=== PATIENT | female | born 1945 | race Caucasian/White ===

== ENCOUNTER → 2019-11-02 08:41 | Outpatient (CLI) | payer MEDICARE, SELFPAY ==
--- NOTE | ~2019-11-02 | US_ITS ---
EXAMINATION: US soft tissue LE RT DATE: 11/02/2019 09:16 INDICATION: Localized swelling, mass and lump at the medial right lower leg. TECHNIQUE: Multiple grayscale and Doppler ultrasound images of the region of concern at the medial [facility] lower leg were obtained. COMPARISON: None FINDINGS: Posterior acoustic shadowing such with a 8 x 10 x 5 mm hypoechoic region in the subcutaneous fat at t he region of concern. The superficial margin of the lesion is approximately 4-5 mm from the skin surf randy. No internal vascular flow on color Doppler. No hyperechoic region to suggest calcification. IMPRESSION: 1. . Abnormality of concern corresponds to a subcutaneous 8 x 10 x 5 mm nodular hypoechoic lesion whi ch is nonspecific. Differential would include neoplasm either benign or malignant, complex cyst or gr anuloma. Could consider ultrasound-guided biopsy. Reviewed, dictated and finalized at location A. IMPRESSION: 1. . Abnormality of concern corresponds to a subcutaneous 8 x 10 x 5 mm nodular hypoechoic lesion which is nonspecific. Differential would include neoplasm ei ther benign or malignant, complex cyst or granuloma. Could consider ultrasound- guided biopsy.
== END ==
PROVIDERS: PCP Family Medicine; Visit Provider Nurse Practitioner Family
DX: R22.41 Localized swelling, mass and lump, right lower limb (principal)
CPT/HCPCS: 76882

== ENCOUNTER 2019-11-07 10:14 | Emergency (ER) | payer MEDICARE, SELFPAY ==
[2019-11-07] VITALS (30 sets, daily range): BP systolic 160–206; BP diastolic 55–140; PULSE 50–60; RESP 13–22; TEMP 37; O2SAT 91–99
--- NOTE | ~2019-11-07 | XR_ITS ---
XR chest 2V 11/07/2019 10:55 Indication: Chest pain Procedure: PA and lateral views of the chest Comparison: 03/31/2018 Findings: Heart size normal. No focal air space disease, pulmonary edema, pleural effusion or suspect ed pneumothorax. No acute osseous abnormality. Impression: 1: No acute cardiopulmonary disease. Reviewed, dictated and finalized at location A. Impression: 1: No acute cardiopulmonary disease.
--- NOTE | 2019-11-07 10:58 | ECG_ITS ---
Measurements Intervals [place] Rate: 56 P: 30 MT: 188 QRS: -30 QRSD: 89 T: 44 QT: 416 QTc: 403 Interpretive Statements SINUS BRADYCARDIA BORDERLINE R WAVE PROGRESSION, ANTERIOR LEADS BASELINE ARTIFACT- I, III, AVL BORDERLINE ECG Electronically Signed On 11-07-2019 11:10:20 CDT by Damian Cardenas D.O.
[2019-11-07 11:11] LABS: Basophils Percent Auto 0.6 % (0.2-1.2); Eosinophils Absolute Auto 0.2 K/mm3 (0-0.3); Eosinophils Percent Auto 4.2 % (0-4.4); Hematocrit 41.2 % (37.0-47.0); Hemoglobin 13.8 g/dL (12.0-15.0); Immature Granulocyte Absolute 0.02 K/mm3 (0.00-0.031); Immature Granulocyte Percent A 0.4 % (0-0.5); Immature Platelet Fraction Pct 1.4 % (0.9-11.2); Lymphocytes Percent Auto 17.9 % (18.3-44.2); Mean Corpuscular HGB Conc 33.5 g/dl (32-36); Mean Corpuscular Hemoglobin 31.1 pg (26-34); Mean Corpuscular Volume 92.8 fl (80-100); Mean Platelet Volume 9.6 fl (7.4-10.4); Monocytes Absolute Auto 0.4 K/mm3 (0.1-0.6); Monocytes Percent Auto 8.4 % (2.6-8.5); Neutrophils Absolute Auto 3.4 K/mm3 (1.3-6.7); Neutrophils Percent Auto 68.5 % (45.5-73.1); Platelet Count Result 82 k/mm3 (150-375); Red Blood Count 4.44 M/mm3 (4.2-5.4); Red Cell Distribution Width 12.6 % (11.5-14.5)
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
[2019-11-07 11:21] LABS: INR 1.1; Prothrombin Time 14.3 Seconds (11.1-14.7)
[2019-11-07 11:27] LABS: Blood Urea Nitrogen 19 mg/dL (7-17); Calcium 9.5 mg/dL (8.4-10.2); Carbon Dioxide 23 mmol/L (22-30); Chloride 106 mmol/L (98-107); Estimated CRCL calculation 55 ml/min; Estimated Glomerular Filt Rate > 60; Glucose 140 mg/dL (65-105); Potassium 4.3 mmol/L (3.4-5.0); Sodium 139 mmol/L (137-145)
[2019-11-07 11:38] LABS: Troponin I < 0.012 ng/mL (0.000-0.034)
[2019-11-07 14:20] LABS: Troponin I < 0.012 ng/mL (0.000-0.034)
== END 2019-11-07 15:20 | disposition home or self-care (01) ==
PROVIDERS: Emergency Provider Emergency Medicine; PCP Family Medicine
DX: R07.9 Chest pain, unspecified (principal); F41.9 Anxiety disorder, unspecified; I10 Essential (primary) hypertension; K21.0 Gastro-esophageal reflux disease with esophagitis; E78.00 Pure hypercholesterolemia, unspecified; E11.9 Type 2 diabetes mellitus without complications; Z79.82 Long term (current) use of aspirin; F32.9 Major depressive disorder, single episode, unspecified
CPT/HCPCS: 36415; 71046; 80048; 84484; 85025; 85055; 85610; 85730; 93005; 99284

== ENCOUNTER → 2019-11-14 08:55 | Outpatient (CLI) | payer MEDICARE, SELFPAY ==
--- NOTE | ~2019-11-14 | MM_ITS ---
EXAMINATION: MM screening [facility] BI w yancy HISTORY: Screening mammogram, family history of breast cancer in her daughter. TECHNIQUE: Craniocaudal and mediolateral oblique 3-D tomosynthesis images were obtained and synthetic 2-D images were generated. CAD analysis was submitted and interpreted. COMPARISON: 05/31/2018, 05/16/2018, 03/21/2017, 02/02/2017 BREAST PARENCHYMAL COMPOSITION: There are scattered areas of fibroglandular density. FINDINGS: A stable cyst is present in the inner right breast. There is no evidence of suspicious mass , calcification, or architectural distortion to suggest malignancy in either breast. There has been n o suspicious interval change. IMPRESSION: 1. No mammographic evidence of malignancy. 2. Recommend routine screening mammography in one year. BI-RADS Category 2: Benign finding(s). Reviewed, dictated and finalized at location A.
== END ==
PROVIDERS: PCP Family Medicine; Visit Provider Family Medicine
DX: Z12.31 Encounter for screening mammogram for malignant neoplasm of breast (principal)
CPT/HCPCS: 77063; 77067

== ENCOUNTER → 2019-11-15 13:54 | Outpatient (CLI) | payer MEDICARE, SELFPAY ==
--- NOTE | ~2019-11-15 | XR_ITS ---
XR tibia fibula RT 2V DATE: 11/15/2019 14:34 INDICATION: Localized swelling, mass, lump, right lower limb TECHNIQUE: AP and lateral views COMPARISON: None FINDINGS: No fracture or dislocation, periosteal reaction or bone destruction. IMPRESSION: Negative Reviewed, dictated and finalized at location B. IMPRESSION: Negative
== END ==
PROVIDERS: PCP Family Medicine; Visit Provider Nurse Practitioner Family
DX: R22.41 Localized swelling, mass and lump, right lower limb (principal)
CPT/HCPCS: 73590

== ENCOUNTER 2019-11-22 09:51 | Outpatient (CLI) | payer MEDICARE, SELFPAY ==
--- NOTE | ~2019-11-22 | US_ITS ---
EXAMINATION: US biopsy st muscle DATE: 11/22/2019 10:57 INDICATION: Subcutaneous nodule at the medial right calf TECHNIQUE: The procedure including the risks and benefits was discussed with the patient. Risks discu ssed included bleeding and infection. The patient understood the risks and agreed to proceed. The sk in overlying the medial right calf was prepped and draped in usual sterile fashion. Anesthetic was a dministered with 1% lidocaine subcutaneously. An 18 gauge core biopsy needle was advanced under cont inuous ultrasound observation to the lesion of interest. 3 core biopsy specimens were obtained. The needle was removed and the entry site was cleaned and dressed. Post procedure ultrasound demonstrat ed no hemorrhage. FINDINGS: Ultrasound images demonstrate a 6 x 4 x 5 mm hypoechoic shadowing nodules in the subcutaneo us fat corresponding to the palpable abnormality. Subsequent images demonstrate biopsy needle advance d through the lesion. IMPRESSION: 1. Successful Ultrasound-guided biopsy of a 6 x 4 x 5 mm hypoechoic subcutaneous nodule at the medial right calf. Reviewed, dictated and finalized at location A. IMPRESSION: 1. Successful Ultrasound-guided biopsy of a 6 x 4 x 5 mm hypoechoic subcutaneou s nodule at the medial right calf.
== END 2019-11-22 09:52 | disposition home or self-care (01) ==
PROVIDERS: PCP Family Medicine; Visit Provider Nurse Practitioner Family
DX: R22.41 Localized swelling, mass and lump, right lower limb (principal); M79.89 Other specified soft tissue disorders
CPT/HCPCS: 20206; 76942; 88304

== ENCOUNTER 2020-03-18 07:38 | Outpatient (CLI) | payer MEDICARE, SELFPAY ==
--- NOTE | ~2020-03-18 | US_ITS ---
EXAMINATION: US aorta [facility] scrn DATE: 03/18/2020 08:17 INDICATION: Abdominal aortic aneurysm screening. TECHNIQUE: Grayscale, color Doppler, and pulsed Doppler images of the aorta and common iliac arteries were obtained. COMPARISON: Abdomen MRI 12/15/2018, CT abdomen and pelvis 11/10/2018 FINDINGS: The aorta is normal in caliber. The right common iliac artery is normal in caliber. The left common i liac artery is normal in caliber. IMPRESSION: 1. No abdominal aortic aneurysm. Reviewed, dictated and finalized at location B. PACKER
== END 2020-03-18 07:39 | disposition home or self-care (01) ==
LOC: ANHIMG 07:40
PROVIDERS: PCP Family Medicine; Visit Provider Internal Medicine Cardiovascular Disease
DX: I10 Essential (primary) hypertension (principal); Z82.49 Family history of ischemic heart disease and other diseases of the circulatory system
CPT/HCPCS: 76706

== ENCOUNTER → 2021-01-19 12:22 | Outpatient (CLI) | payer MEDICARE, SELFPAY ==
--- NOTE | ~2021-01-19 | MR_ITS ---
EXAMINATION: MR brain IAC wo/w con EXAM DATE: 01/19/2021 13:24 INDICATION: Left-sided hearing loss. TECHNIQUE: Multi-sequential, multiplanar MR images of the brain, brainstem, internal auditory canals were obtained without contrast. Whole brain sagittal T1, axial diffusion, gradient echo (T2*), T1, T 2, FLAIR sequences obtained. High resolution coronal 3-D FIESTA, coronal T1 FSE, axial T1 FSPGR of t he internal auditory canals. Patient was then injected with 14 cc Multihance contrast intravenously. Postcontrast axial and coronal T1 weighted whole brain, axial and coronal high resolution T1 IAC seq uences obtained. There is no prior study for comparison. FINDINGS: No evidence of mastoid or middle ear opacification. The 7th/8th cranial nerve complexes a re symmetric, normal in course and caliber. No cerebellopontine angle masses. Posterior fossa unrem arkable. Some dilated perivascular spaces. Mild microangiopathy. There are no areas of restricted diffusion to suggest acute infarction. There is no acute hemorrhage seen on the T2*, a hemosiderin sensitive seq uence. No intraparenchymal brain mass. The ventricles are normal in size. There are no extra-axial collections. Flow voids are seen in the cerebral arteries on the T2-weighted sequences consistent wi th their expected patency. Patient has had bilateral ocular lens surgery. Soft tissue is unremarkab le. There are no areas of abnormal enhancement on the postcontrast images. IMPRESSION: 1. Mild microangiopathy. 2. Otherwise unremarkable exam. Reviewed, dictated and finalized at location B.
[2021-01-19 12:50] LABS: Estimated Glomerular Filt Rate > 60
== END ==
PROVIDERS: PCP Family Medicine; Visit Provider Otolaryngology
DX: H91.90 Unspecified hearing loss, unspecified ear (principal); I73.9 Peripheral vascular disease, unspecified
CPT/HCPCS: 70553; A9577

== ENCOUNTER → 2021-03-06 10:58 | Outpatient (CLI) | payer MEDICARE, SELFPAY ==
--- NOTE | ~2021-03-06 | DEXA_ITS ---
Bone Density Report Name: Ratna Wilson Age: 76 Sex: Female Ethnicity: White Date of : 1945 Indication: postmenopausal; screening for osteoporosis; height loss; hysterectomy; Referring Provider: Nirali Yanez Study: Bone densitometry was performed. Exam Date: March 06, 2021 Accession number: [id number] Bone Density: Region BMD T-score Z-score Classification AP Spine (L1-L4) 0.991 -0.5 2.1 Normal Femoral Neck (Left) 0.695 -1.4 0.8 Osteopenia Total Hip (Left) 0.961 0.2 2.1 Normal Femoral Neck (Right) 0.695 -1.4 0.8 Osteopenia Total Hip (Right) 0.934 -0.1 1.9 Normal Total Hip Mean 0.948 0.1 2.0 Normal World Health Organization criteria for BMD impression classify patients as: Normal (T-score at or above -1.0), Osteopenia (T-score between -1.0 and -2.5), or Osteoporosis (T-score at or below -2.5). 10-year Fracture Risk(1): Major Osteoporotic Fracture 12% Hip Fracture 2.4% Reported Risk Factors: [place] (), Neck BMD=0.695, BMI=33.4 (1) FRAX(R) Version 3.08. Fracture probability calculated for an untreated patient. Fracture probability may be lower if the patient has received treatment. Clinical Information Provided by Patient: Has used the following medications: Vitamin D Has the following medical conditions: Hysterectomy Patient maximum height was 60 Menopause Age: 27 Drinks caffeinated beverages Onset of menses at age 9 Number of children 4 Impression: The patient has low bone mass, based on the Left Femoral Neck T-score. The patient has an estimated ten-year risk of hip fracture of 2.4% and an estimated ten-year risk of major fracture of 12%, based on the WHO FRAX algorithm. Discussion: BONE DENSITY IS LOW AT ONE OR MORE SKELETAL SITES. This patient's lowest T-score is low at one or more skeletal sites. It meets the World Health Organization's (WHO) criteria for ?low bone mass? (T-score between -1.0 and -2.5). The patient's 10-year risk of fracture as calculated by FRAX is less than the threshold where pharmacological therapy is recommended by the National Osteoporosis Foundation (NOF). However, all treatment decisions require clinical judgment and consideration of individual patient factors, including patient preferences, comorbidities, previous drug use, risk factors not captured in the FRAX model (e.g., frailty, falls, vitamin D deficiency, increased bone turnover, interval significant decline in bone density) and possible under or overestimation of fracture risk by FRAX. The patient should follow a healthful lifestyle (good nutrition with adequate calcium and vitamin D, and appropriate weight-bearing exercise). Follow-Up: Consider repeating this study in 2 to 3 years to reassess this patient's status, or sooner if there is some new clinical indication.
== END ==
PROVIDERS: PCP Family Medicine; Visit Provider Nurse Practitioner Family
DX: Z78.0 Asymptomatic menopausal state (principal); M85.89 Other specified disorders of bone density and structure, multiple sites
CPT/HCPCS: 77080

== ENCOUNTER → 2021-04-21 14:48 | Outpatient (CLI) | payer MEDICARE, SELFPAY ==
--- NOTE | ~2021-04-21 | MM_ITS ---
EXAMINATION: MM screening [facility] BI w yancy HISTORY: Screening mammogram, family history of breast cancer in her daughter. TECHNIQUE: Craniocaudal and mediolateral oblique 3-D tomosynthesis images were obtained and synthetic 2-D images were generated. CAD analysis was submitted and interpreted. COMPARISON: 11/14/2019, 05/31/2018, 05/26/2018, 03/31/2017 BREAST PARENCHYMAL COMPOSITION: There are scattered areas of fibroglandular density. FINDINGS: There is no evidence of suspicious mass, calcification, or architectural distortion to sugg est malignancy in either breast. There has been no suspicious interval change. IMPRESSION: 1. No mammographic evidence of malignancy. 2. Recommend routine screening mammography in one year. BI-RADS Category 1: Negative Reviewed, dictated and finalized at location A. ROOM ATTENDANT
== END ==
PROVIDERS: Visit Provider Nurse Practitioner Family
DX: Z12.31 Encounter for screening mammogram for malignant neoplasm of breast (principal)
CPT/HCPCS: 77063; 77067

== ENCOUNTER 2021-10-18 23:56 | Emergency (ER) | payer MEDICARE, SELFPAY ==
[2021-10-19 00:04] VITALS: BP 174/91; PULSE 64; RESP 18; TEMP 36.8; O2SAT 96
--- NOTE | 2021-10-19 00:10 | ED.ANIMALBIT ---
HPI - Animal Bite General Chief Complaint: Animal Bite Stated Complaint: tick bite, tick stuck inside Time Seen by Provider: 10/19/21 00:00 History of Present Illness HPI narrative: 76-year-old female presented the emergency room for evaluation of a possible retained tick from a tick bite. Patient states she was out camping this weekend and did a skin check this evening when she got home noticed a possible tick bite to her right inner thigh. Is unsure as to how long the tick has been present. Related Data Home Medications Medication Instructions Recorded Confirmed aspirin 81 mg chewable tablet 81 mg PO DAILY 03/28/19 05/28/21 (Ann Chewable Low Dose Aspirin) cholecalciferol (vitamin D3) 25 1,000 unit PO DAILY 03/28/19 05/28/21 mcg (1,000 unit) capsule ibuprofen 200 mg capsule 200 mg PO QPM 03/28/19 05/28/21 vitamins A,C,L-blsf-nsprhj 14,320 1 cap PO BID 08/20/20 05/28/21 unit-226 mg-200 unit capsule (ICaps AREDS) hydrochlorothiazide 12.5 mg capsule 12.5 mg PO DAILY 12/29/20 05/28/21 Allergies Allergy/AdvReac Type Severity Reaction Status Date / Time iodine Allergy Unknown Hives Verified 10/19/21 00:10 Review of Systems Review of Systems: CONSTITUTIONAL: Denies fever, chills, or sweats. EYES: Denies visual changes, redness, or discharge. ENT: Denies rhinorrhea, congestion, sore throat, or otalgia. CARDIOVASCULAR: Denies chest pain, palpitations, or edema. RESPIRATORY: Denies cough or dyspnea. GASTROINTESTINAL: Denies abdominal pain, nausea, vomiting, or diarrhea. GENITOURINARY: Denies dysuria or hematuria. SKIN: Tick bite right inner thigh MUSCULOSKELETAL: Denies back pain, joint pain, or myalgia. NEUROLOGIC: Denies headache, numbness, dizziness, or weakness. PSYCHIATRIC: Denies anxiety or depression. [facility] Past Medical History Medical History Anxiety and depression Asymptomatic age-related postmenopausal state BMI 31.0-31.9,adult BMI 33.0-33.9,adult BMI 34.0-34.9,adult Gastroesophageal reflux disease with esophagitis Hearing loss High cholesterol History of right inguinal hernia HTN (hypertension) Type 2 diabetes mellitus without complications Surgical History Surgical History H/O tooth extraction History of hysterectomy History of inguinal hernia repair Family History Family History Mother Cerebrovascular accident Family history of type 2 diabetes mellitus Father Family history of lung cancer Patient's father is Hypertension AA (aortic aneurysm) Lung cancer Sibling AA (aortic aneurysm) Tobacco abuse Alcohol abuse Hypertension Heart disease Anemia with low platelet count Familial hyperlipidemia, high LDL Son Liver cancer Other Family history of malignant neoplasm of breast in first degree relative Family history of malignant neoplasm of thyroid Social History Social History Second hand tobacco smoke exposure: Yes Alcohol intake: current Substance use: never Substance use type: does not use 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 HEAD: Normocephalic, atraumatic. EYES: PERRLA and EOMI. CHEST: Clear to auscultation. No respiratory distress. No wheezes rales or rhonchi HEART: Regular rate and rhythm. No murmur heard. Normal peripheral pulses. EXTREMITIES: Retained foreign body in the right inner thigh SKIN: Warm, dry, no rash. NEURO: No focal deficits. Alert and oriented x3. PSYCH: Normal mood and affect. Course Vital Signs Vital signs: Vital Signs Temperature 36.8 C 10/19/21 00:04
[2021-10-19] MEDS: DOXYCYCLINE HYCLATE 100 MG TABLET PO (00:19)
== END 2021-10-19 00:48 | disposition home or self-care (01) ==
PROVIDERS: Emergency Provider Nurse Practitioner Family; PCP Family Medicine
DX: S70.361A Insect bite (nonvenomous), right thigh, initial encounter (principal); I10 Essential (primary) hypertension; E11.9 Type 2 diabetes mellitus without complications; K21.00 Gastro-esophageal reflux disease with esophagitis, without bleeding; F41.9 Anxiety disorder, unspecified; F32.A Depression, unspecified; Z77.22 Contact with and (suspected) exposure to environmental tobacco smoke (acute) (chronic); Z79.82 Long term (current) use of aspirin; W57.XXXA Bitten or stung by nonvenomous insect and other nonvenomous arthropods, initial encounter
CPT/HCPCS: 99283; A9270

== ENCOUNTER → 2022-02-22 13:47 | Outpatient (CLI) | payer MEDICARE, SELFPAY ==
--- NOTE | ~2022-02-22 | US_ITS ---
EXAMINATION: US soft tissue groin LT DATE: 02/22/2022 14:12 INDICATION: Left groin mass. TECHNIQUE: Multiple grayscale and Doppler ultrasound images of the left groin were obtained. COMPARISON: None FINDINGS: In the left labia majora, there is a 8 x 4 x 6 mm subcutaneous hypoechoic mass. IMPRESSION: 1. Nonspecific 8 mm subcutaneous hypoechoic mass in the left labia majora, most likely benign. Reviewed, dictated and finalized at location B.
== END ==
PROVIDERS: PCP Family Medicine; Visit Provider Nurse Practitioner Family
DX: N90.7 Vulvar cyst (principal); M79.89 Other specified soft tissue disorders
CPT/HCPCS: 76882

== ENCOUNTER → 2023-06-30 07:49 | Outpatient (CLI) | payer MEDICARE, SELFPAY ==
--- NOTE | ~2023-06-30 | US_ITS ---
Limited Abdominal Sonogram: Real-time sonographic imaging of the right upper quadrant was performed. Clinical History: Abdominal pain Findings: The liver appears normal with no evidence of bile duct dilatation. Questionable vague 2.6 x 1.8 x 1.7 cm echogenic area in the left hepatic lobe. Main portal vein demonstrates normal directio n of flow. The gallbladder is well distended, and contains echogenic gallstones. No gallbladder wall thickening evident. The common bile duct measures 3 mm. The visualized pancreas, aorta, and IVC are unremarkable. Right kidney measures 10.8 cm in length, without hydronephrosis. Impression: Cholelithiasis. Very vague 2.6 x 1.8 x 1.7 cm hyperechoic area in the left hepatic lobe. This could reflect normal va riation in echotexture and/or focal fatty infiltration. Mass lesion felt to be less likely, not compl etely excluded. Consider follow-up MR to further evaluate, as indicated. Reviewed, dictated and finalized at location M. RECREATION MANAGER Impression: Cholelithiasis. Very vague 2.6 x 1.8 x 1.7 cm hyperechoic area in the left hepatic lobe. This c ould reflect normal variation in echotexture and/or focal fatty infiltration. M ass lesion felt to be less likely, not completely excluded. Consider follow-up MR to further evaluate, as indicated.
== END ==
PROVIDERS: PCP Physician Assistant; Visit Provider Physician Assistant
DX: R10.9 Unspecified abdominal pain (principal); R93.2 Abnormal findings on diagnostic imaging of liver and biliary tract
CPT/HCPCS: 76705

== ENCOUNTER → 2023-06-30 07:51 | Outpatient (CLI) | payer MEDICARE, SELFPAY ==
--- NOTE | ~2023-06-30 | XR_ITS ---
Left Knee Technique: AP, lateral, and sunrise views were obtained. Clinical History: Pain Findings: No fracture or dislocation is seen. Osseous alignment is anatomic. Joint spaces are preserv ed without degenerative or erosive change. Soft tissues are unremarkable. No joint effusion is seen. Impression: Unremarkable left knee radiographs. Reviewed, dictated and finalized at location . NESS SYSTEMS TECHNICIAN Impression: Unremarkable left knee radiographs.
== END ==
PROVIDERS: PCP Orthopaedic Surgery; Visit Provider Orthopaedic Surgery
DX: M25.562 Pain in left knee (principal)
CPT/HCPCS: 73562

== ENCOUNTER 2023-07-11 11:44 | Outpatient (CLI) | payer MEDICARE, SELFPAY ==
--- NOTE | ~2023-07-11 | NM_ITS ---
EXAMINATION: NM hepatobiliary wo pharm DATE: 07/11/2023 14:28 INDICATION: Right upper quadrant abdominal pain COMPARISON: None. TECHNIQUE: 4.933 mCi Tc-99m mebrofenin (Choletec) was administered intravenously. Scintigraphic imag es of the abdomen were obtained for one hour. At the 1 hour time point, the patient drank 8 oz Ensure , and imaging was continued for 60 minutes. Gallbladder ejection fraction was calculated by the techn ologist. FINDINGS: There is normal clearance of radiotracer from the blood pool. There is homogeneous tracer u ptake by the liver. Activity progresses to the bowel and gallbladder. The gallbladder ejection fract ion (GBEF) is indeterminate with continually rising gallbladder activity curve through the 30 minutes of imaging post ensure ingestion. Note that with this technique, normal GBEF >= 33%. IMPRESSION: 1. Gallbladder ejection fraction there is indeterminate, below lower limits of normal consistent wit h gallbladder dysfunction or chronic cholecystitis in the appropriate clinical setting. Reviewed, dictated and finalized at location A. E CUTTING MACHINE OPERATOR HELPER IMPRESSION: 1. Gallbladder ejection fraction there is indeterminate, below lower limits of normal consistent with gallbladder dysfunction or chronic cholecystitis in the appropriate clinical setting.
--- NOTE | 2023-07-11 15:20 | ECG_ITS ---
Measurements Intervals [place] Rate: 68 P: 44 NC: 188 QRS: -42 QRSD: 95 T: 60 QT: 396 QTc: 421 Interpretive Statements SINUS RHYTHM LEFT AXIS DEVIATION INCOMPLETE RIGHT BUNDLE BRANCH BLOCK INFERIOR INFARCT, AGE INDETERMINATE ANTERIOR INFARCT, AGE INDETERMINATE BASELINE WANDER- V3 ABNORMAL ECG COMPARED TO ECG 11/07/2019 10:24:47 SINUS RHYTHM NOW PRESENT INCOMPLETE RIGHT BUNDLE-BRANCH BLOCK NOW PRESENT Electronically Signed On 07-11-2023 15:41:53 ACCESS SERVICES LIBRARIAN by Damian Cardenas D.O.
== END 2023-07-11 11:45 | disposition home or self-care (01) ==
PROVIDERS: PCP Family Medicine; Visit Provider Surgery
DX: R10.11 Right upper quadrant pain (principal); I10 Essential (primary) hypertension; K80.20 Calculus of gallbladder without cholecystitis without obstruction; Z01.818 Encounter for other preprocedural examination; I45.10 Unspecified right bundle-branch block
CPT/HCPCS: 78226; 93005; A9537

== ENCOUNTER 2023-07-13 13:41 | Inpatient (IN) | payer MEDICARE, SELFPAY ==
--- NOTE | 2023-07-11 11:21 | PC.NURSE ---
Report to the Outpatient Waiting Room, entrance under the green pavilion located off [facility], at time __3 PM on date ___07/12/23____. Planned Procedure Time: __5 PM . Time changes happen often and if your time is changed the preop area will call you the afternoon before. - You and your visitor will be asked to self-screen and do not enter if you have any COVID symptoms. - A mask is optional within the hospital at this time. Patients may have clear liquids (water, carbonated beverages, clear teas, apple juice) until 3 hours prior to surgery ( 2 PM)with a maximum of 20 ounces. - No food from midnight until time of surgery - Infants may have breast milk until 4 hours before surgery, formula 6 hours prior to surgery. - Children will be allowed to drink immediately following surgery. If applicable, please bring a bottle or sippy cup to assist with drinking. Juice, water, soda, and popsicles are readily available. For infants on formula, please bring formula the day of surgery. Pacifiers are allowed. Take the following medications with a SIP of water the morning of surgery: ____NEBIVOLOL,SERTRALINE DO NOT STOP ANY OF YOUR OTHER PRESCRIPTION MEDICATIONS PRIOR TO SURGERY ?EXCEPT THE FOLLOWING Medications to discontinue per physician ___NO VITAMINS/SUPPLEMENTS TODAY Please no make-up, nail [place], hairspray, perfume, deodorant, or body powder the day of surgery. No jewelry (including any body piercings) or valuables the day of surgery, leave them at home. Please take a shower or bath the night before, or the morning of, surgery with an antibacterial soap. Wear comfortable, loose fitting clothing. Children are encouraged to wear pajamas. - Jewelry must be removed prior to entering the operating room. Rings and piercings that are not removed may be cut off. - The hospital will not accept responsibility for valuables. - Please leave all valuables, including medications, at home the day of surgery. If you are going home after surgery, a licensed peg driver must drive you home. - NO public transportation without another adult if you receive anesthesia. - We recommend that an adult stay with you for 24 hours following discharge. - We also recommend that you do not drive, make important decision, drink alcoholic beverages, or take any drugs that were not prescribed by your health care provider for at least 24 hours after your discharg Follow any additional instructions given to you from your surgeon. If you or anyone in your household have experienced Covid symptoms in the past week, please notify your surgeon or the nurse liaison at the phone number below for possible testing. Telephone instructions given to __PATIENT and asked if any additional questions and then verbalized understanding. Patient advised to call surgeon office or pre surgery nurse liaison [phone] if any additional questions.
[2023-07-11 11:33] VITALS: BMI 32.8
[2023-07-12] VITALS (12 sets, daily range): BP systolic 107–172; BP diastolic 45–77; PULSE 56–61; RESP 14–22; TEMP 36.1–36.9; O2SAT 94–100
--- NOTE | 2023-07-12 14:11 | WPDANESEPPF ---
Anes - Initial Pre Proc Eval Procedure: Operation Date: 07/12/23 17:00 Proposed Procedures p Laparoscopic Cholecystectomy - Varun Trinh MD Date/Time: 07/12/23 14:11 Surgeon: Varun Trinh MD Pre Op Diagnosis: RUQ abd pain, gallstones Patient Data Age: 78 Gender: F Height: 1.52 m Weight: 76.2 kg Allergies Allergy/AdvReac Type Severity Reaction Status Date / Time iodine AdvReac Mild Hives Verified 07/11/23 11:09 Home Medications Medication Instructions Recorded Confirmed Type cholecalciferol (vitamin D3) 25 1,000 unit PO DAILY 03/28/19 07/11/23 History mcg (1,000 unit) capsule vitamins A,C,[id number]-[id number] 4,296 1 cap PO QPM 08/20/20 07/11/23 History mcg-226 mg-90 mg capsule (ICaps AREDS) hydrochlorothiazide 12.5 mg capsule 12.5 mg PO DAILY #90 caps 01/17/23 07/11/23 Rx ezetimibe 10 mg tablet (Zetia) 10 mg PO DAILY #90 tabs 02/07/23 07/11/23 Rx benazepril 20 mg tablet 20 mg PO DAILY #90 tabs 04/17/23 07/11/23 Rx nebivolol 5 mg tablet (Bystolic) 5 mg PO DAILY #90 tabs 04/17/23 07/11/23 Rx sertraline 100 mg tablet (Zoloft) 100 mg PO DAILY #90 tabs 06/01/23 07/11/23 Rx alprazolam 0.25 mg tablet 0.25 mg PO PRN PRN anxiety 07/11/23 07/11/23 History cyanocobalamin (vitamin B-12) 1,000 mcg PO DAILY 07/11/23 07/11/23 History 1,000 mcg tablet Patient hx anesthesia problems: none Family hx anesthesia problems: none Results Review: All pre-operative results and documents have been reviewed as part of the pre-operative evaluation. [facility] Past Medical History Medical History Anxiety and depression Asymptomatic age-related postmenopausal state Basal cell carcinoma BMI 31.0-31.9,adult BMI 33.0-33.9,adult BMI 34.0-34.9,adult Dysuria Gastroesophageal reflux disease with esophagitis Hearing loss High cholesterol History of HPV infection History of right inguinal hernia HTN (hypertension) Type 2 diabetes mellitus without complications Surgical History Surgical History H/O tooth extraction History of hysterectomy ~1973 History of inguinal hernia repair History of salpingo-oophorectomy S/P appendectomy Family History Family History Mother Cerebrovascular accident Family history of type 2 diabetes mellitus Father Family history of lung cancer Patient's father is Hypertension AA (aortic aneurysm) Lung cancer Sibling AA (aortic aneurysm) Tobacco abuse Alcohol abuse Hypertension Heart disease Anemia with low platelet count Familial hyperlipidemia, high LDL Cerebrovascular accident Son Liver cancer Colon cancer metastasized to liver Daughter Breast cancer Thyroid cancer Other Family history of malignant neoplasm of breast in first degree relative Family history of malignant neoplasm of thyroid Social History Social History Smoking status: Never smoker Second hand tobacco smoke exposure: Yes Alcohol intake: current Drinks per week: 4 Substance use: never Substance use type: does not use Lack of Transportation: YES Lack of Food: Never True Current Housing: I Have Housing Concerned About Future Housing: No Difficulty Paying Gas/Electric Bills: No Difficulty Paying for Meds: No Currently Unemployed: No Education: Bachelor's Degree Difficulty w/ Childcare or Family Care: No Living arrangements: alone Occupation/Education: retired 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
--- NOTE | 2023-07-12 14:31 | WPDHPUPDATE1 ---
History and Physical Update Update Date/Time: 07/12/23 14:31 History and Physical has been reviewed, including an updated exam of the patient. There are NO changes in the patient's condition. Risks, benefits, and alternatives have been discussed and questions answered. Patient agrees to proceed with procedure.
[2023-07-12] MEDS: LACTATED RINGERS 1,000 ML 30 ML IV CONT ×2 (14:35→17:17)
[2023-07-12] MEDS: ACETAMINOPHEN 500 MG TABLET 1000 MG PO (14:35)
[2023-07-12] MEDS: KETOROLAC 15 MG/ML VIAL (*BKC) IV PUSH (14:35)
[2023-07-12] MEDS: ceFAZolin 2 GM/D5W 50 ML 2 GM/50 ML BAG IVPB (14:45)
[2023-07-12 14:50] LABS: Alanine Aminotransferase 27 U/L (6-35); Albumin Level 4.6 g/dL (3.5-5.1); Alkaline Phosphatase 70 U/L (38-126); Anion Gap 5 mmol/L (8-16); Aspartate Amino Transferase 23 U/L (14-36); Bilirubin,Total 0.6 mg/dL (0.2-1.3); Blood Urea Nitrogen 25 mg/dL (7-17); Calcium 9.9 mg/dL (8.4-10.2); Carbon Dioxide 28 mmol/L (22-30); Chloride 106 mmol/L (98-107); Estimated CRCL calculation 45 ml/min; Estimated Glomerular Filt Rate > 60; Glucose 105 mg/dL (65-110); Potassium 4.5 mmol/L (3.4-5.0); Sodium 139 mmol/L (137-145)
[2023-07-12 14:52] LABS: Alanine Aminotransferase 26 U/L (6-35); Albumin Level 4.6 g/dL (3.5-5.1); Alkaline Phosphatase 69 U/L (38-126); Amylase 65 U/L (30-110); Aspartate Amino Transferase 22 U/L (14-36); Bilirubin,Total 0.6 mg/dL (0.2-1.3)
[2023-07-12 14:58] LABS: Lipase 82 U/L (23-300)
--- NOTE | 2023-07-12 16:47 | SUR.OPER ---
Frozen section specimens (x2) sent to pathology per PERLA Powell. Received by Pathologist, Dr. Leahy at 1600. Dr. Trinh informed of results per Dr. Leahy via telephone at 1630. Negative for cancer. Will proceed with laparoscopic cholecystectomy per Dr. Trinh. Family aware.
--- NOTE | 2023-07-12 17:44 | W.PM.PROC2 ---
Procedure Note - Detailed Date of Procedure 07/12/23 Pre-op Diagnosis Chronic cholecystitis, cholelithiasis Post-op Diagnosis Other (Chronic cholecystitis, cholelithiasis, liver mass medial right lobe) Procedure Performed Laparoscopic cholecystectomy, incisional biopsy liver mass right lobe Surgeon Varun Trinh MD Baked And Graphite Inspector Lucy ABAD, Jigna ABAD Anesthesia General and Local Indications Patient has been having episodes of right upper quadrant abdominal pain that initially were like spasms and quite severe. These have lessened but she still has chronic continue was right upper quadrant pain sometimes low-grade but other times pretty severe. Her exam showed that she was tender in the right upper quadrant. Gallbladder ultrasound showed that she had gallstones. HIDA scan showed delayed gallbladder emptying consistent with chronic cholecystitis. She is taken to surgery now for laparoscopic cholecystectomy. Findings Liver had a very abnormal appearance. The medial segment of the left lobe of the liver was actually small but the lateral segment of the left lobe was huge and curved around the midline and back towards the gallbladder. The gallbladder itself had mild chronic inflammatory changes but was pliable, compressed easily, and was very mobile relative to the gallbladder fossa. The most surprising and interesting finding however was white irregular appearing tissue in the medial most aspect of the right lobe of the liver. This started on the surface of the liver near the edge but did very near the gallbladder and proceeded posterior right adjacent to the gallbladder and ended with another large somewhat bulbous irregular end in the most posterior aspect of the medial portion of the right lobe of the liver. By inspection, this appeared very ominous. Both true cut and in incisional biopsies of this mass were performed prior to removing the gallbladder. These were sent for frozen section which showed only dense fibrous tissue, no evidence of malignancy. His surgery was more bloody than usual primarily due to the multiple biopsies of the abnormal mass. The gallbladder itself had no evidence of a thickened area or of the tumor during its removal. Description of Procedure Patient was taken to surgery and induced into general anesthesia. The abdomen was prepped and draped. Local was infiltrated and a small epigastric incision was made. I then tried to gain access to the peritoneal cavity with the varies needle. I was not able to get clear access with this technique. I then used a 5 mm applied Medical optical trocar and carefully inserted that. I was able to gain intraperitoneal access but there was quite a bit of blood in the upper abdomen. We insufflated the abdomen and then another 5 mm port was placed in the right lateral lower abdomen. A camera was moved to this area. I replaced the 5 mm epigastric trocar with a 10 11 port. We then looked at the liver and the old blood. There was not any fresh bleeding that I could see initially. We then proceeded with placement of the other 2 5 mm ports 1 in the right mid abdomen and 1 just above the umbilicus. We moved the camera to the umbilical port and placed the patient in reverse Trendelenburg. I suctioned away the blood and actually some of the ascending colon was above the gallbladder in the gutter lateral to the right lobe of the liver. This was brought down to a more normal position. I suctioned away old blood and eventually found an area near the falciform ligament where obviously the varies needle, instead of going into the peritoneal cavity, was striking the left lateral segment of the liver and causing some bleeding. Once found, I cauterized this area and it stopped the bleeding. It did not restart through the surgery. I then suctioned and cleared up any residual blood. We had to place an additional 5 mm port in the left mid abdomen. This was used to retract the large lateral segm
[2023-07-12] MEDS: fentaNYL CITRATE INJ (*CRX) 100 MCG/2 ML VIAL 25 MCG IV PUSH ×9 (17:46→20:45)
[2023-07-12] MEDS: ONDANSETRON INJ 4 MG/2 ML VIAL IV PUSH ×2 (17:48→20:39)
[2023-07-12] MEDS: diphenhydrAMINE HCl INJ 50 MG/ML VIAL 12.5 MG IV PUSH ×2 (18:03→18:09)
--- NOTE | 2023-07-12 19:24 | PC.NURSE ---
pt transferred to [address] [place] [address] at this time.
[2023-07-12] MEDS: LACTATED RINGERS 1,000 ML 100 ML IV CONT (20:30)
[2023-07-12] MEDS: oxyCODONE/ACETAMINOPHEN (*CRX) 10-325 MG TABLET 1 TAB PO (21:50)
[2023-07-12] MEDS: ALPRAZolam (*CRX) 0.25 MG TABLET PO (23:07)
[2023-07-12] MEDS: IBUPROFEN IV 800 MG/200 ML 800 MG/200 ML BAG 400 MG IVPB (23:08)
[2023-07-13] VITALS (7 sets, daily range): BP systolic 117–168; BP diastolic 51–73; PULSE 56–61; RESP 16–20; TEMP 35.9–36.8; O2SAT 91–100
--- NOTE | ~2023-07-13 | CT_ITS ---
EXAMINATION: CT abdomen pelvis w con DATE: 07/14/2023 22:41 INDICATION: Right upper quadrant abdominal pain. TECHNIQUE: Computed tomography (CT) of the abdomen and pelvis was performed with 100 mL Omnipaque 350 intravenous contrast. Automated exposure control and iterative reconstruction technique were employe d. The dose-length product was 691.80 mGy-cm. COMPARISON: CT abdomen and pelvis 11/10/2018 FINDINGS: The visualized portions of the lung bases demonstrate small pleural effusions right worse t freeman left. There is atelectasis bilaterally with a dependent predominance. The heart size is normal. N o pericardial effusion. There is a 2.2 cm hypodense mass in right hepatic lobe. There is a 6.1 cm hyp odense mass in right hepatic lobe. There are surgical clips adjacent to the larger mass right hepatic lobe. There are surgical clips from cholecystectomy. There is fluid inferior to right hepatic lobe a nd in the gallbladder fossa. There is an 8 mm hypodense mass in left hepatic lobe, likely benign. The spleen is normal. There is a 6 mm cyst in the body of the pancreas, likely benign. The adrenal gland s are normal. There are cysts in the kidneys measuring up to 3.9 cm on the right. There is chronic mi ld right hydronephrosis and proximal hydroureter. There are no dilated loops of bowel. The appendix i s not visualized. There are no pathologically enlarged lymph nodes. There is severe thoracic and lumb ar spondylosis. IMPRESSION: 1. Small volume of fluid in the gallbladder fossa and inferior to right hepatic lobe. Consider hepato biliary scintigraphy to exclude bile leak. 2. 6.1 cm and 2.2 cm liver masses, stable from 11/10/2018, consistent with hemangiomas. 3. Mild right hydronephrosis and proximal hydroureter, stable from 11/10/2018. 4. Small pleural effusions. Reviewed, dictated and finalized at location E. GER PARTY IMPRESSION: 1. Small volume of fluid in the gallbladder fossa and inferior to right hepatic lobe. Consider hepatobiliary scintigraphy to exclude bile leak. 2. 6.1 cm and 2.2 cm liver masses, stable from 11/10/2018, consistent with oren iomas. 3. Mild right hydronephrosis and proximal hydroureter, stable from 11/10/2018. 4. Small pleural effusions.
--- NOTE | ~2023-07-13 | NM_ITS ---
EXAMINATION: NM hepatobiliary wo pharm DATE: 07/15/2023 10:46 INDICATION: Right upper quadrant pain and fluid collection at the gallbladder fossa post cholecystect katy. Assess for bile leak. COMPARISON: 07/11/[address] dated 07/24/2023 TECHNIQUE: 8.23 mCi Tc-99m mebrofenin (Choletec) was administered intravenously. Scintigraphic image s of the abdomen were obtained for one hour. FINDINGS: There is normal clearance of radiotracer from the blood pool. There is homogeneous tracer u ptake by the liver. No change in appearance of the liver with relative enlargement of the left hepati c lobe and a photopenic defect at the inferomedial aspect of the right hepatic lobe which corresponds in location to a large hemangioma on the prior CT. Activity progresses to the bowel with typical duo denal and proximal jejunal activity first evident at 25 minutes which progressively increases over th e following 35 minutes. There is no evident extension of activity along the inferior margin of the ri ght hepatic lobe at the site of the previously noted perihepatic fluid collection to suggest bile bryan k. IMPRESSION: 1. No gallbladder activity consistent with interval cholecystectomy with no evident bile leak. Reviewed, dictated and finalized at location A. MBLY LINE BRAZER IMPRESSION: 1. No gallbladder activity consistent with interval cholecystectomy with no ev ident bile leak.
[2023-07-13] MEDS: oxyCODONE/ACETAMINOPHEN (*CRX) 5-325 MG TABLET 1 TABLET PO (00:03)
[2023-07-13] MEDS: ONDANSETRON INJ 4 MG/2 ML VIAL IV PUSH ×3 (00:06→22:51)
[2023-07-13 05:30] LABS: Hemoglobin 11.8 g/dL (12.0-15.0); Immature Platelet Fraction Pct 2.3 % (0.9-11.2); Mean Corpuscular HGB Conc 32.8 g/dl (32-36); Mean Corpuscular Hemoglobin 31.1 pg (26-34); Mean Platelet Volume 9.2 fl (7.4-10.4); Platelet Count Result 88 k/mm3 (150-375); Red Blood Count 3.79 M/mm3 (4.2-5.4); Red Cell Distribution Width 12.7 % (11.5-14.5); White Blood Count 9.8 K/mm3 (4.5-10.0)
[2023-07-13 05:45] LABS: Alanine Aminotransferase 120 U/L (6-35); Albumin Level 4.2 g/dL (3.5-5.1); Alkaline Phosphatase 61 U/L (38-126); Anion Gap 10 mmol/L (8-16); Aspartate Amino Transferase 102 U/L (14-36); Bilirubin,Total 0.6 mg/dL (0.2-1.3); Blood Urea Nitrogen 27 mg/dL (7-17); Calcium 8.7 mg/dL (8.4-10.2); Carbon Dioxide 23 mmol/L (22-30); Chloride 102 mmol/L (98-107); Estimated CRCL calculation 40 ml/min; Estimated Glomerular Filt Rate 60; Glucose 155 mg/dL (65-110); Potassium 4.4 mmol/L (3.4-5.0); Sodium 135 mmol/L (137-145)
[2023-07-13] MEDS: oxyCODONE/ACETAMINOPHEN (*CRX) 10-325 MG TABLET 1 TAB PO ×3 (05:57→22:48)
--- NOTE | 2023-07-13 08:57 | WPDANESPN ---
Anes - Prog Note Post-Op Date/Time: 07/13/23 08:57 Vital Signs: Last Vital Signs Temp 36.1 C L 07/13/23 03:31 Pulse 58 L 07/13/23 03:31 Resp 20 07/13/23 03:31 BP 135/63 07/13/23 03:31 Pulse Ox 98 07/13/23 03:31 O2 Del Method Nasal Cannula 07/12/23 20:00 O2 Flow Rate 2 07/12/23 20:00 Pain Score (VAS): 2 I/O: Intake & Output 07/12/23 07/13/23 07/13/23 23:59 07:59 15:59 Intake Total 700 Balance 700 Laboratory Tests 07/13/23 05:20 07/13/23 05:20 07/12/23 07/12/23 07/12/23 14:31 14:31 14:31 WBC RBC Hgb Hct MCV MCH MCHC RDW Plt Count MPV % Immature Plt Fraction Sodium 139 Potassium 4.5 Chloride 106 Carbon Dioxide 28 Anion Gap 5 L BUN 25 H Creatinine 0.80 Estim Creat Clear Calc 45 Estimated GFR > 60 Glucose 105 Calcium 9.9 Total Bilirubin 0.6 0.6 Direct Bilirubin 0.0 AST 22 23 ALT 26 Alkaline Phosphatase Total Protein Albumin Amylase Lipase 07/12/23 07/12/23 07/12/23 14:31 14:31 14:31 WBC RBC Hgb Hct MCV MCH MCHC RDW Plt Count MPV % Immature Plt Fraction Sodium Potassium Chloride Carbon Dioxide Anion Gap BUN Creatinine Estim Creat Clear Calc Estimated GFR Glucose Calcium Total Bilirubin Direct Bilirubin AST ALT 27 Alkaline Phosphatase 69 70 Total Protein 7.0 7.0 Albumin 4.6 Amylase Lipase 07/12/23 07/13/23 14:31 05:20 WBC 9.8 RBC 3.79 L Hgb 11.8 L Hct 36.0 L MCV 95.0 MCH 31.1 MCHC 32.8 RDW 12.7 Plt Count 88 L MPV 9.2 % Immature Plt Fraction 2.3 Sodium 135 L Potassium 4.4 Chloride 102 Carbon Dioxide 23 Anion Gap 10 BUN 27 H Creatinine 0.90 Estim Creat Clear Calc 40 Estimated GFR 60 Glucose 155 H Calcium 8.7 Total Bilirubin 0.6 Direct Bilirubin AST 102 H ALT 120 H Alkaline Phosphatase 61 Total Protein 6.0 L Albumin 4.6 4.2 Amylase 65 Lipase 82 Patient Feedback: Patient satisfied with anesthetic care. pt sitting up eating breakfast. c/o a little hoarseness but not bad, also had some nausea during the night but stated she was in a lot of pain at that time, both relieved with meds. currently just has a little bit of discomfort.
--- NOTE | 2023-07-13 09:54 | PM.PNGS ---
Progress Note: A&P Assessment and Plan (1) Cholelithiasis with chronic cholecystitis: Code(s): K80.10 - Calculus of gallbladder with chronic cholecystitis without obstruction Status: Acute Assessment and Plan: Postop day 1 following laparoscopic cholecystectomy. Patient had issues with RUQ pain overnight and had an episode of vomiting due to the severity of her abdominal pain. This has improved some this morning. She is getting up to walk in the halls this morning. No more nausea or vomiting. Will try advancing her diet today. Stop IV fluids if able to tolerate her meal at lunch. Possibly discharge tomorrow if clinically improving. Will repeat labs tomorrow morning. (2) Liver mass: Code(s): R16.0 - Hepatomegaly, not elsewhere classified Status: Acute Assessment and Plan: Right liver lobe mass found during surgery with multiple true cut and incisional biopsies taken. They were sent for frozen section which showed only dense fibrous tissue, no evidence of malignancy. Discussed these findings with the patient and her daughter again today. (3) Essential (primary) hypertension: Code(s): I10 - Essential (primary) hypertension Status: Acute Assessment and Plan: BP stable, continue home medications. (4) Thrombocytopenia: Code(s): D69.6 - Thrombocytopenia, unspecified Status: Acute Assessment and Plan: Platelets 88,000 this morning, which appears to be at her baseline with review of labs in the past 4 years. She reportedly has had a thorough workup at [facility] and sounds like it is possibly ITP. Plan I have discussed the patient's case and plan of care with Dr. Trinh. Subjective Subjective Date/Time Seen: 07/13/23 08:54 Post Op day: 1 (Laparoscopic cholecystectomy) Patient reports: no flatus and afebrile Interval history: Patient reports having a significant amount of abdominal pain overnight. She required IV fentanyl just before midnight due to her abdominal pain. She reports this is right upper quadrant pain and right shoulder pain. She reports vomiting due to the severity of her pain. She felt so uncomfortable in the bed that she could not stand the bed to sleep, therefore she got up to the chair and spent the remainder of the night sitting up in the chair. This morning, her abdominal pain is slightly better. She has gotten up and walked in the room multiple times. She denies any nausea this morning. She had a clear liquid tray for breakfast and was tolerating this well when I saw her. She also reports a rash on her left hand. Denies any itching or pain. No other complaints at this time. Review of Systems Review of Systems: All systems reviewed & are unremarkable except as noted in HPI and below Constitutional: Constitutional: Reports no additional constitutional complaints, Denies fever(s) and Denies headache(s) Cardiovascular: Cardiovascular: Reports no additional cardiovascular complaints and Denies chest pain Respiratory: Respiratory: Reports no additional respiratory complaints and Denies dyspnea Gastrointestinal: Gastrointestinal: Reports as per HPI and Reports no additional gastrointestinal complaints Exam Const: General: comfortable and no acute distress Orientation/consciousness: patient oriented x3 Cardio: Rate: regular rate Rhythm: regular rhythm GI: Inspection: non-distended GI Palp: Yes Soft to palpation, Yes Tenderness to palpation present (GI) (incisional and RUQ) and No Guarding due to palpation present (GI) Auscultation: normal bowel sounds Other: port incisions with minimal localized ecchymosis and the incision right of the umbilicus has scant bloody drainage Skin: Other: Left wrist on the radial side there is a petechial rash extending towards her thumb. No swelling or erythema. Her right lower arm has a peripheral IV with some swelling and erythema around the IV, which I asked nursing to remove. Neuro: General: moves
[2023-07-13] MEDS: CHOLECALCIFEROL 1,000 UNITS TABLET 1000 UNITS PO (10:10)
[2023-07-13] MEDS: hydroCHLOROthiazide 12.5 MG CAPSULE PO (10:10)
[2023-07-13] MEDS: SERTRALINE HCL 50 MG TABLET 100 MG PO (10:10)
[2023-07-13] MEDS: lisinopriL 20 MG TABLET PO (10:11)
[2023-07-13] MEDS: EZETIMIBE 10 MG TABLET PO (10:11)
[2023-07-13] MEDS: NEBIVOLOL HCL 5 MG TABLET PO (10:11)
[2023-07-13] MEDS: CYANOCOBALAMIN 1,000 MCG TABLET 1000 MCG PO (10:11)
[2023-07-13] MEDS: diphenhydrAMINE HCl INJ 50 MG/ML VIAL 25 MG IV PUSH (10:11)
[2023-07-13] MEDS: ACETAMINOPHEN 500 MG TABLET PO (10:35)
[2023-07-13] MEDS: LACTATED RINGERS 1,000 ML 100 ML IV CONT ×2 (10:35→19:58)
[2023-07-13] MEDS: IBUPROFEN IV 800 MG/200 ML 800 MG/200 ML BAG 400 MG IVPB ×2 (12:40→20:00)
[2023-07-13] MEDS: OPTI-GEN TAB 1 TABLET PO (17:35)
[2023-07-14] MEDS: oxyCODONE/ACETAMINOPHEN (*CRX) 5-325 MG TABLET 1 TABLET PO ×2 (04:08→12:02)
[2023-07-14 04:17] VITALS: BP 127/54; PULSE 61; RESP 18; TEMP 36.4; O2SAT 93
[2023-07-14 05:56] LABS: Basophils Percent Auto 0.3 % (0.2-1.2); Eosinophils Percent Auto 0.1 % (0-4.4); Hematocrit 32.2 % (37.0-47.0); Hemoglobin 10.8 g/dL (12.0-15.0); Immature Granulocyte Absolute 0.05 K/mm3 (0.00-0.031); Immature Granulocyte Percent A 0.7 % (0-0.5); Immature Platelet Fraction Pct 1.9 % (0.9-11.2); Lymphocytes Absolute Auto 0.32 K/mm3 (0.9-3.2); Lymphocytes Percent Auto 4.8 % (18.3-44.2); Mean Corpuscular HGB Conc 33.5 g/dl (32-36); Mean Corpuscular Hemoglobin 31.1 pg (26-34); Mean Corpuscular Volume 92.8 fl (80-100); Mean Platelet Volume 9.8 fl (7.4-10.4); Monocytes Absolute Auto 0.6 K/mm3 (0.1-0.6); Monocytes Percent Auto 8.8 % (2.6-8.5); Neutrophils Absolute Auto 5.7 K/mm3 (1.3-6.7); Neutrophils Percent Auto 85.3 % (45.5-73.1); Platelet Count Result 59 k/mm3 (150-375); Red Blood Count 3.47 M/mm3 (4.2-5.4); Red Cell Distribution Width 12.9 % (11.5-14.5); White Blood Count 6.7 K/mm3 (4.5-10.0)
[2023-07-14 06:07] LABS: Alanine Aminotransferase 94 U/L (6-35); Albumin Level 3.4 g/dL (3.5-5.1); Alkaline Phosphatase 71 U/L (38-126); Anion Gap 8 mmol/L (8-16); Aspartate Amino Transferase 67 U/L (14-36); Bilirubin,Total 1.1 mg/dL (0.2-1.3); Blood Urea Nitrogen 18 mg/dL (7-17); Calcium 8.6 mg/dL (8.4-10.2); Carbon Dioxide 24 mmol/L (22-30); Chloride 102 mmol/L (98-107); Estimated CRCL calculation 45 ml/min; Estimated Glomerular Filt Rate > 60; Glucose 171 mg/dL (65-110); Potassium 3.7 mmol/L (3.4-5.0); Sodium 134 mmol/L (137-145)
[2023-07-14 08:00] VITALS: BP 128/58; PULSE 60; RESP 17; TEMP 36.4; O2SAT 93
--- NOTE | 2023-07-14 08:31 | PM.PNGS ---
Progress Note: A&P Assessment and Plan (1) Cholelithiasis with chronic cholecystitis: Qualifiers: Cholelithiasis location: gallbladder Biliary obstruction: without biliary obstruction Qualified Code(s): K80.10 - Calculus of gallbladder with chronic cholecystitis without obstruction Code(s): K80.10 - Calculus of gallbladder with chronic cholecystitis without obstruction Status: Chronic Assessment and Plan: Still having pain in her right upper quadrant and shoulder. Could be CO2 retention or postoperative discomfort as we did do several biopsies of the abnormal liver mass. The vomiting has stopped but she seems distended and tender in the right upper quadrant. No bowel movement as yet. Very poor appetite. No increase in her white blood cell count. Will get CT scan abdomen and pelvis with IV contrast. Hopefully this is just postoperative pain but bleeding or bile leak or small-bowel obstruction, ileus are certainly possible. (2) Liver mass: Code(s): R16.0 - Hepatomegaly, not elsewhere classified Status: Chronic Assessment and Plan: Frozen section shows dense fibrosis. Pending permanent sections. 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 postprocedure. Subjective Subjective Date/Time Seen: 07/14/23 08:31 Post Op day: 2 Patient reports: still having pain (Right upper quadrant and right shoulder), no bowel movement, afebrile and other (Poor appetite, feels bloated) Review of Systems Review of Systems: All systems reviewed & are unremarkable except as noted in HPI and below (HPI) Exam Const: General: cooperative, no acute distress, alert, awake, uncomfortable and overweight; No lethargic Orientation/consciousness: patient oriented x3 and No confusion GI: Inspection: distended, incision (Dry and intact, no drainage) and obesity GI Palp: Yes Soft to palpation, Yes Tenderness to palpation present (GI) (Specially right upper quadrant), No Guarding due to palpation present (GI), No Hernia present, No Palpable mass present and No Rebound tenderness present Neuro: General: patient oriented x3 and no focal motor deficits Extrem: General: no calf tenderness and no edema Psych: Affect: normal affect Insight: Good insight present (Psych) Judgement: Good judgement present (Psych) Objective Data Vital Signs Vital Signs: Vital Signs - 24 hr 07/13/23 10:00 07/13/23 10:11 07/13/23 10:10 Temperature Pulse Rate 56 L 56 L Respiratory Rate Blood Pressure 125/51 L Pulse Oximetry 100 Oxygen Delivery Room Air 07/13/23 12:40 07/13/23 20:39 07/13/23 20:00 Temperature 36.8 C 36.6 C Pulse Rate 61 59 L Respiratory Rate 16 18 Blood Pressure 126/53 L 117/55 L Pulse Oximetry 95 91 Oxygen Delivery Room Air 07/13/23 23:38 07/14/23 04:17 Temperature 36.8 C 36.4 C Pulse Rate 57 L 61 Respiratory Rate 18 18 Blood Pressure 157/73 H 127/54 L Pulse Oximetry 92 93 Oxygen Delivery Intake/Output Intake/Output: Intake & Output 07/11/23 07/12/23 07/13/23 07/14/23 23:59 23:59 23:59 23:59 Intake Total 700 2940 120 Output Total 700 400 Balance 700 2240 -280 Meds/Results Medications: Active Medications Generic Name Dose Route Start Last Admin Trade Name Freq PRN Reason Stop Dose Admin Acetaminophen 500 mg 07/12/23 18:55 07/13/23 10:35 Acetaminophen 500 Mg Tablet PO 500 mg Q6H PRN Administration Mild Pain (1-3) or Fever Alprazolam 0.25 mg 07/12/23 18:55 07/12/23 23:07 Alprazolam (*Crx) 0.25 Mg Tablet PO 0.25 mg PRN PRN Administration anxiety Cyanocobalamin 1,000 mcg 07/13/23 09:00 07/13/23 10:11 Cyanocobalamin 1,000 Mcg Tablet PO 1,000 mcg DAILY WILMER Administration Diphenhydramine HCl 25 mg 07/12/23 18:55
[2023-07-14] MEDS: lisinopriL 20 MG TABLET PO (09:27)
[2023-07-14] MEDS: CHOLECALCIFEROL 1,000 UNITS TABLET 1000 UNITS PO (09:28)
[2023-07-14] MEDS: EZETIMIBE 10 MG TABLET PO (09:28)
[2023-07-14] MEDS: hydroCHLOROthiazide 12.5 MG CAPSULE PO (09:28)
[2023-07-14 09:29] VITALS: PULSE 64
[2023-07-14] MEDS: NEBIVOLOL HCL 5 MG TABLET PO (09:29)
[2023-07-14] MEDS: SERTRALINE HCL 50 MG TABLET 100 MG PO (09:29)
[2023-07-14 09:30] VITALS: RESP 18; O2SAT 93
[2023-07-14] MEDS: CYANOCOBALAMIN 1,000 MCG TABLET 1000 MCG PO (09:30)
[2023-07-14] MEDS: methylPREDNISolone SOD SUCC 40 MG VIAL IV PUSH ×3 (09:39→21:39)
[2023-07-14 20:10] VITALS: BP 133/54; PULSE 63; RESP 18; TEMP 37.2; O2SAT 90
[2023-07-14] MEDS: diphenhydrAMINE HCl INJ 50 MG/ML VIAL 25 MG IV PUSH (21:39)
[2023-07-14] MEDS: ACETAMINOPHEN 500 MG TABLET PO (22:57)
[2023-07-14] MEDS: ALPRAZolam (*CRX) 0.25 MG TABLET PO (22:57)
[2023-07-15 00:03] VITALS: O2SAT 92
[2023-07-15 08:05] VITALS: O2SAT 96
[2023-07-15 08:32] VITALS: O2SAT 92
[2023-07-15 09:52] VITALS: PULSE 86
[2023-07-15] MEDS: NEBIVOLOL HCL 5 MG TABLET PO (09:52)
[2023-07-15] MEDS: CYANOCOBALAMIN 1,000 MCG TABLET 1000 MCG PO (09:53)
[2023-07-15] MEDS: CHOLECALCIFEROL 1,000 UNITS TABLET 1000 UNITS PO (09:53)
[2023-07-15] MEDS: EZETIMIBE 10 MG TABLET PO (09:53)
[2023-07-15] MEDS: hydroCHLOROthiazide 12.5 MG CAPSULE PO (09:53)
[2023-07-15] MEDS: lisinopriL 20 MG TABLET PO (09:53)
[2023-07-15] MEDS: SERTRALINE HCL 50 MG TABLET 100 MG PO (09:53)
--- NOTE | 2023-07-15 12:13 | PM.DS ---
DS: Admitting Diagnosis Discharge Date 07/15/2023 Admitting Diagnosis Chronic cholecystitis, cholelithiasis Essential hypertension Type 2 diabetes DS: Discharge Diagnosis Discharge Diagnosis (1) Cholelithiasis with chronic cholecystitis: Qualifiers: Cholelithiasis location: gallbladder Biliary obstruction: without biliary obstruction Qualified Code(s): K80.10 - Calculus of gallbladder with chronic cholecystitis without obstruction Code(s): K80.10 - Calculus of gallbladder with chronic cholecystitis without obstruction Status: Chronic Assessment and Plan: Final pathology did not show cholecystitis but patient did have gallstones and clinical symptoms of chronic cholecystitis. HIDA scan also was positive for chronic cholecystitis. (2) Sclerosing hemangioma: Code(s): D23.9 - Other benign neoplasm of skin, unspecified Status: Chronic Assessment and Plan: At surgery, this was a very suspicious appearing lesion of the right lobe of the liver directly adjacent to the gallbladder. Both Laz-Cut biopsies and an incisional biopsy were done. Final pathology did show sclerosing hemangioma. No evidence of malignancy. (3) Thrombocytopenia: Code(s): D69.6 - Thrombocytopenia, unspecified Status: Chronic (4) Allergy to iodinated contrast media: Code(s): Z91.041 - Radiographic dye allergy status Status: Chronic Assessment and Plan: History of hives, requires several hours of steroid prep prior to iodinated contrast study. DS: Summary Hospital Course Hospital Course: Patient was seen in the office on 07/11/2023, for complaints of severe right upper quadrant abdominal pain. She also had right upper quadrant tenderness. She had had had a previous ultrasound which showed gallstones. Also on Tuesday, she had an hepatobiliary scan which showed chronic cholecystitis as well. Patient is leaving on a trip in about 10 days and she was scheduled for surgery on 07/12/2023. She underwent laparoscopic cholecystectomy in the late afternoon on 07/12/2023. At surgery, a very suspicious area of the right lobe of the liver adjacent to the gallbladder was found. There had been mention of hemangioma on previous imaging studies but they only described a 2 cm lesion. This lesion was considerably larger running from the anterior aspect of the liver to the posterior area adjacent to the gallbladder. Both true cut and incisional biopsies of this mass were done at surgery. These biopsies at frozen section showed dense fibrous tissue but no malignancy. Cholecystectomy was then performed. Patient was having considerable amount of pain and was kept in the hospital. She was not much better on postop day 1. Even though she was having quite a bit of pain, she was hemodynamically stable, responding well to analgesics, and had expected postoperative lab work. On postop day 2. She was still pretty uncomfortable at least as much on postop day 1. I had seen her early in the morning with this finding. I ordered a CT scan of the abdomen pelvis with IV contrast. She has a history of hives with IV contrast. She was medicated with several doses of Solu-Cortef and also diphenhydramine. The CT scan was not able to be done until late at night. CT scan was essentially negative other than some fluid in the gallbladder fossa. The CT scan was done on 07/14/2023. Throughout the day, the patient was feeling better, having less pain, and eating much better than the day before. On the day of discharge, 07/15/2023, she was doing better again and anxious to go home. Due to the fluid noted on CT the night before, a HIDA scan was done on 07/15/2019 for looking for a possible bile leak. HIDA scan was negative for bile leak. Patient was doing well and is discharged today in good condition. She will be seeing me in the office in 3 days, 07/18/2023. Status at Discharge Functional status at discharge: independent a
== END 2023-07-15 12:55 | disposition home or self-care (01) | DRG 419 ==
LOC: ANHSURGERY 14:05 → ANH2MED 14:05
PROVIDERS: Nurse Practitioner Family; Admitting Provider Surgery; PCP Family Medicine; Visit Provider Surgery
PROC: 0FT44ZZ Resection of Gallbladder, Percutaneous Endoscopic Approach (ICD-10-PCS; CPT 47562; principal; 2023-07-12 17:00)
DX: K80.10 Calculus of gallbladder with chronic cholecystitis without obstruction (principal); D18.03 Hemangioma of intra-abdominal structures; R16.0 Hepatomegaly, not elsewhere classified; D69.6 Thrombocytopenia, unspecified; K21.9 Gastro-esophageal reflux disease without esophagitis; I10 Essential (primary) hypertension; E11.9 Type 2 diabetes mellitus without complications; E66.9 Obesity, unspecified; Z68.32 Body mass index [BMI] 32.0-32.9, adult; Z90.49 Acquired absence of other specified parts of digestive tract; Z85.828 Personal history of other malignant neoplasm of skin; Z91.041 Radiographic dye allergy status
CPT/HCPCS: 36415; 74177; 78226; 80053; 80076; 82150; 83690; 85025; 85027; 85055; 88304; 88305; 88331; 93005; A9270; A9537; G0378; J0690; J1100; J1200; J1741; J1885; J2405; J2704; J2920; J3010; J7120; Q9967

== ENCOUNTER 2023-10-11 14:32 | Outpatient (CLI) | payer MEDICARE, SELFPAY ==
--- NOTE | ~2023-10-11 | MR_ITS ---
MRI of the left knee Clinical history: Pain Technique: Coronal proton density and proton density-weighted images, sagittal proton-density and T2 fat-sat images, and axial proton-density fat-saturated images were acquired. Findings: Anterior and posterior cruciate ligaments are intact. Medial collateral ligament and the la teral collateral ligament complex are intact. Popliteus tendon is intact. Medial and lateral menisci are intact, without evidence of tear. Patellar cartilage is relatively well preserved. There is mild thinning of the femoral trochlear cart ilage. There is extensive moderate chondral thinning of the medial femoral condyle. Lateral compartme nt articular cartilage is relatively well-preserved. Extensor mechanism is intact. There is minimal joint effusion. No Coy's cyst. Impression: Mild degenerative change, as above. No ligamentous injury or meniscal tear seen. Reviewed, dictated and finalized at [facility]. Impression: Mild degenerative change, as above. No ligamentous injury or meniscal tear seen.
== END 2023-10-11 14:33 ==
LOC: MICIMG 14:33
PROVIDERS: PCP Family Medicine; Visit Provider Orthopaedic Surgery
DX: M25.562 Pain in left knee (principal)
CPT/HCPCS: 73721

== ENCOUNTER 2024-02-08 10:14 | Outpatient (CLI) | payer MEDICARE, SELFPAY ==
--- NOTE | ~2024-02-08 | XR_ITS ---
Left Knee Technique: AP, lateral, and sunrise views were obtained. Clinical History: Osteoarthritis Findings: No fracture or dislocation is seen. Osseous alignment is anatomic. Joint spaces are preserv ed without degenerative or erosive change. Soft tissues are unremarkable. No joint effusion is seen. Impression: Unremarkable left knee radiographs. Reviewed, dictated and finalized at location . Impression: Unremarkable left knee radiographs.
== END 2024-02-08 10:15 | disposition home or self-care (01) ==
PROVIDERS: PCP Family Medicine; Visit Provider Orthopaedic Surgery
DX: M25.561 Pain in right knee (principal); M17.12 Unilateral primary osteoarthritis, left knee
CPT/HCPCS: 73564

== ENCOUNTER 2024-04-03 00:07 | Day surgery (SDC) | payer MEDICARE, SELFPAY ==
[2024-03-15 14:19] VITALS: BMI 34.8
--- NOTE | 2024-03-15 14:36 | PC.NURSE ---
pt called for pat interview. states she recently saw dr ontiveros and had stress test and echo done. fu appt is next week. pt is not co sob or cp. will fu with dr rodarte office for clearance if needed.
[2024-04-03 09:30] VITALS: BP 154/82; PULSE 65; RESP 20; TEMP 36.1; O2SAT 99; BMI 34.6
[2024-04-03] MEDS: LACTATED RINGERS 1,000 ML 150 ML IV CONT (09:48)
--- NOTE | 2024-04-03 10:52 | WPDANESEPPF ---
Anes - Initial Pre Proc Eval Procedure: Operation Date: 04/03/24 10:30 Proposed Procedures p Colonoscopy - Charles Vega MD Date/Time: 04/03/24 10:52 Surgeon: Charles Vega MD Pre Op Diagnosis: hemorrhage/diarrhea Patient Data Age: 79 Gender: F Height: 1.5 m Weight: 77.8 kg Last Vital Signs Temp 97.0 F L 04/03/24 09:30 Pulse 65 04/03/24 09:30 Resp 20 04/03/24 09:30 BP 154/82 H 04/03/24 09:30 Pulse Ox 99 04/03/24 09:30 O2 Del Method Room Air 04/03/24 09:30 Allergies Allergy/AdvReac Type Severity Reaction Status Date / Time Qvnixsp-NPY-EtP Reductase AdvReac Intermediate myalgia Verified 04/03/24 09:36 Inhibitor iodine AdvReac Mild Hives Verified 04/03/24 09:36 Home Medications Medication Instructions Recorded Confirmed Type cholecalciferol (vitamin D3) 25 1,000 unit PO DAILY 03/28/19 04/03/24 History mcg (1,000 unit) capsule vitamins A,C,O-twty-zizznh 4,296 1 cap PO QPM 08/20/20 04/03/24 History mcg-226 mg-90 mg capsule (ICaps AREDS) benazepril 20 mg tablet 20 mg PO DAILY #90 tabs 04/17/23 04/03/24 Rx nebivolol 5 mg tablet (Bystolic) 5 mg PO DAILY #90 tabs 04/17/23 04/03/24 Rx sertraline 100 mg tablet (Zoloft) 100 mg PO DAILY #90 tabs 06/01/23 04/03/24 Rx alprazolam 0.25 mg tablet 0.25 mg PO PRN PRN anxiety 07/11/23 04/03/24 History krill 1,000 mg-omega-3 170 mg-dha 1 cap PO ONCE 11/30/23 04/03/24 History 50 mg-epa 80 hc-prvqps-ckkuw capsule (krill oil) ezetimibe 10 mg tablet (Zetia) 10 mg PO DAILY #90 tabs 01/05/24 04/03/24 Rx hydrochlorothiazide 12.5 mg capsule 12.5 mg PO DAILY #90 caps 01/17/24 04/03/24 Rx rifaximin 550 mg tablet (Xifaxan) 550 mg PO TID 14 days #42 tabs 03/01/24 04/03/24 Rx meloxicam 15 mg tablet 15 mg PO DAILY #30 tabs 04/03/24 04/03/24 Rx Patient hx anesthesia problems: none Family hx anesthesia problems: none Results Review: All pre-operative results and documents have been reviewed as part of the pre-operative evaluation. FOR[facility]LY [facility] Past Medical History Medical History Anxiety and depression Asymptomatic age-related postmenopausal state Basal cell carcinoma Dysuria Gastroesophageal reflux disease with esophagitis Hearing loss High cholesterol History of HPV infection History of right inguinal hernia HTN (hypertension) Hx of skin cancer, basal cell Sclerosing hemangioma Right lobe of liver Screening for osteoporosis Screening for thyroid disorder Thrombocytopenia Type 2 diabetes mellitus without complications Surgical History Surgical History H/O tooth extraction History of cholecystectomy History of hysterectomy ~1973 History of inguinal hernia repair History of salpingo-oophorectomy Hx of biopsy Laparoscopic cholecystectomy, incisional biopsy liver mass right lobe 07/12/23 IDA S/P appendectomy Status post cholecystectomy Family History Family History Mother Cerebrovascular accident Family history of type 2 diabetes mellitus Father Family history of lung cancer Patient's father is Hypertension AA (aortic aneurysm) Lung cancer Sibling AA (aortic aneurysm) Tobacco abuse Alcohol abuse Hypertension Heart disease Anemia with low platelet count Familial hyperlipidemia, high LDL Cerebrovascular accident Son Liver cancer Colon cancer metastasized to liver Daughter Breast cancer Thyroid cancer Other Family history of malignant neoplasm of breast in first degree relative Family history of malignant neoplasm of thyroid Social History Social History Smoking status: Never smoker Second hand tobacco smoke exposure: Yes Alcohol intake: current Drinks per week: 1 Alcohol use details: one drink a week Substance use: never Substance use type: does not use Do You Feel Safe in your Home?: Yes Lack of Transportation: No Lack of Food: Never True Current Housing: I Have Housing Concerned About Future Housing: No Difficulty Paying Gas/Electric Bills: No Difficulty Paying for Meds: No Currently Unemployed: No Education: Bachelor's Degree Difficulty w/ Childcare or Family Care: No Living arrangements: alone Occupation/Education: retired 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 Informed Consent: The patient's anesthetic plan and its attendant risks and benefits were discussed with the patient/family/POA. Questions were solicited and answers provided to the satisfaction of the patient/family/POA.
--- NOTE | 2024-04-03 10:54 | PM.IMHP ---
H&P: HPI History of Present Illness Date/Time: 04/03/24 10:54 Chief Complaint: History of colon polyps-diarrhea Narrative: this patient's last colonoscopy was 7 years ago, and she was found to have polyps. In addition, she has been in our office for chronic intermittent diarrhea and has been extensively worked up. This colonoscopy will also serve the purpose of investigating chronic diarrhea, with intention of biopsy to rule out microscopic colitis. Review of Systems Review of Systems: All systems reviewed & are unremarkable except as noted in HPI and below PMFSH Past Medical History Medical History Anxiety and depression Asymptomatic age-related postmenopausal state Basal cell carcinoma Dysuria Gastroesophageal reflux disease with esophagitis Hearing loss High cholesterol History of HPV infection History of right inguinal hernia HTN (hypertension) Hx of skin cancer, basal cell Sclerosing hemangioma Right lobe of liver Screening for osteoporosis Screening for thyroid disorder Thrombocytopenia Type 2 diabetes mellitus without complications Surgical History Surgical History H/O tooth extraction History of cholecystectomy History of hysterectomy ~1973 History of inguinal hernia repair History of salpingo-oophorectomy Hx of biopsy Laparoscopic cholecystectomy, incisional biopsy liver mass right lobe 07/12/23 IDA S/P appendectomy Status post cholecystectomy Family History Family History Mother Cerebrovascular accident Family history of type 2 diabetes mellitus Father Family history of lung cancer Patient's father is Hypertension AA (aortic aneurysm) Lung cancer Sibling AA (aortic aneurysm) Tobacco abuse Alcohol abuse Hypertension Heart disease Anemia with low platelet count Familial hyperlipidemia, high LDL Cerebrovascular accident Son Liver cancer Colon cancer metastasized to liver Daughter Breast cancer Thyroid cancer Other Family history of malignant neoplasm of breast in first degree relative Family history of malignant neoplasm of thyroid Social History Social History Smoking status: Never smoker Second hand tobacco smoke exposure: Yes Alcohol intake: current Drinks per week: 1 Alcohol use details: one drink a week Substance use: never Substance use type: does not use Do You Feel Safe in your Home?: Yes Lack of Transportation: No Lack of Food: Never True Current Housing: I Have Housing Concerned About Future Housing: No Difficulty Paying Gas/Electric Bills: No Difficulty Paying for Meds: No Currently Unemployed: No Education: Bachelor's Degree Difficulty w/ Childcare or Family Care: No Living arrangements: alone Occupation/Education: retired 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 Gender identity (if verbalized by the patient): Female Spiritual care concerns: No Meds Home Medications and Allergies Home Medications Medication Instructions Recorded Confirmed Type cholecalciferol (vitamin D3) 25 1,000 unit PO DAILY 03/28/19 04/03/24 History mcg (1,000 unit) capsule vitamins A,C,F-jzut-olihek 4,296 1 cap PO QPM 08/20/20 04/03/24 History mcg-226 mg-90 mg capsule (ICaps AREDS) benazepril 20 mg tablet 20 mg PO DAILY #90 tabs 04/17/23 04/03/24 Rx nebivolol 5 mg tablet (Bystolic) 5 mg PO DAILY #90 tabs 04/17/23 04/03/24 Rx sertraline 100 mg tablet (Zoloft) 100 mg PO DAILY #90 tabs 06/01/23 04/03/24 Rx alprazolam 0.25 mg tablet 0.25 mg PO PRN PRN anxiety 07/11/23 04/03/24 History krill 1,000 mg-omega-3 170 mg-dha 1 cap PO ONCE 11/30/23 04/03/24 History 50 mg-epa 80 fr-bcdlvh-zpbpa capsule (krill oil) ezetimibe 10 mg tablet (Zetia) 10 mg PO DAILY #90 tabs 01/05/24 04/03/24 Rx hydrochlorothiazide 12.5 mg capsule 12.5 mg PO DAILY #90 caps 01/17/24 04/03/24 Rx rifaximin 550 mg tablet (Xifaxan) 550 mg PO TID 14 days #42 tabs 03/01/24 04/03/24 Rx meloxicam 15 mg tablet 15 mg PO DAILY #30 tabs 04/03/24 04/03/24 Rx Allergies Allergy/AdvReac Type Severity Reaction Status Date / Time Arwvlhs-JHB-AsT Reductase AdvReac Intermediate myalgia Verified 04/03/24 09:36 Inhibitor iodine AdvReac Mild Hives Verified 04/03/24 09:36 Vital Signs Vital Signs - 24 hr 04/03/24 09:30 Temperature 97.0 F L Pulse Rate 65 Respiratory Rate 20 Blood Pressure 154/82 H Pulse Oximetry 99 Oxygen Delivery Room Air Exam Const: General: cooperative and healthy appearing Resp: Effort & Inspection: normal respiratory effort and able to speak in complete sentences Auscultation: clear to auscultation bilaterally Cardio: Rate: regular rate Rhythm: regular rhythm GI: Inspection: normal to inspection GI Palp: No No hepatosplenomegaly present Auscultation: normal bowel sounds Rectal Exam: deferred Skin: General skin exam: normal color Psych: Appearance: grossly normal Mental Status: mental status grossly normal Assessment and Plan Assessment and plan (1) Diarrhea: Code(s): R19.7 - Diarrhea, unspecified Status: Acute Assessment and Plan: The patient is deemed a good candidate for the procedure. Consent signed. Will proceed. (2) History of colon polyps: Code(s): Z86.0100 - Personal history of colon polyps, unspecified Status: Acute
[2024-04-03 11:22] VITALS: BP 123/65; PULSE 60; RESP 20; O2SAT 100
[2024-04-03 11:32] VITALS: BP 117/65; PULSE 62; RESP 16; O2SAT 100
[2024-04-03 11:42] VITALS: BP 141/76; PULSE 54; RESP 18; O2SAT 100
== END 2024-04-03 12:04 | disposition home or self-care (01) ==
PROVIDERS: PCP Physician Assistant Medical; Referring Provider Nurse Practitioner; Visit Provider Internal Medicine Gastroenterology
PROC: 0DJD8ZZ Inspection of Lower Intestinal Tract, Via Natural or Artificial Opening Endoscopic (ICD-10-PCS; CPT 45378; principal; 2024-04-03 10:30)
DX: K63.5 Polyp of colon (principal); I10 Essential (primary) hypertension; D69.6 Thrombocytopenia, unspecified; E11.9 Type 2 diabetes mellitus without complications; F41.8 Other specified anxiety disorders; K21.00 Gastro-esophageal reflux disease with esophagitis, without bleeding; E78.00 Pure hypercholesterolemia, unspecified; E66.9 Obesity, unspecified; Z68.34 Body mass index [BMI] 34.0-34.9, adult; Z98.890 Other specified postprocedural states; Z90.49 Acquired absence of other specified parts of digestive tract; Z85.828 Personal history of other malignant neoplasm of skin; Z86.018 Personal history of other benign neoplasm; Z80.1 Family history of malignant neoplasm of trachea, bronchus and lung; Z80.0 Family history of malignant neoplasm of digestive organs; Z80.3 Family history of malignant neoplasm of breast; Z80.8 Family history of malignant neoplasm of other organs or systems; Z82.49 Family history of ischemic heart disease and other diseases of the circulatory system
CPT/HCPCS: 45380; 88305; J2003; J2704; J7120

== ENCOUNTER 2024-04-25 10:24 | Outpatient (CLI) | payer MEDICARE, SELFPAY ==
--- NOTE | ~2024-04-25 | XR_ITS ---
Clinical Indication: Pleural effusion, shortness of breath PA and lateral views of the chest: Comparison: 11/07/2019 Findings: The lungs are clear, without evidence of focal consolidation or pleural effusion. Cardiome diastinal silhouette is within normal limits. Bones and soft tissues are unremarkable. Impression: Normal chest. Reviewed, dictated and finalized at location . URNIST Impression: Normal chest.
== END 2024-04-25 10:25 | disposition home or self-care (01) ==
LOC: MICIMG 10:25
PROVIDERS: PCP Physician Assistant Medical; Visit Provider Nurse Practitioner
DX: J90 Pleural effusion, not elsewhere classified (principal)
CPT/HCPCS: 71046

== ENCOUNTER 2024-06-14 12:29 | Outpatient (CLI) | payer MEDICARE, SELFPAY ==
--- OUTSIDE RECORDS SUMMARY | 2024-06-14 12:32 | XMS_ITS | Clinical Summary ---
Author Organization [facility] Address [address] [place] [id number] Care Team Providers Care Legal Paraprofessional Name Role Phone Unavailable Primary Care Provider Unavailabl e Social History Tobacco Use Types Packs/Day Years Used Date Smoking Tobacco: Never Assessed Comments Unknown Sex and Gender Information Value Date Recorded Sex Assigned at Not on file Legal Sex Female 4:11 PM CDT Gender Identity Not on file Sexual Orientation Not on file Plan of Treatment Health Maintenance Due Date Last Done Comments DTaP, Tdap and Td Vaccines ( 1 - Tdap) 1962 Zoster Vaccines (1 of 2) 1993 Dexa Scan (General) 02/29/2008 Pneumococcal Vaccine: 65+ Ye ars (1 of 1 - PCV) 02/29/2008 RSV Immunization or 60+ Years (1 - 1-dose 75+ series) 2018 COVID-19 Vaccine (2023-2 5 season) 2024 Influenza Adult (#1) 2024 Meningococcal B Vaccine Aged Out No l onger eligible based on patient's age to complete this topic Meningococcal Vaccine Aged Out No talha sherry eligible based on patient's age to complete this topic RSV Immunizations Under 20 Months Aged Out No longer eligible based on patient's age to complete this topic
--- OUTSIDE RECORDS SUMMARY | 2024-06-14 12:32 | XMS_ITS | Encounter Summary ---
Author Organization [facility] Address [address] [place] [address] Care Team Providers Care Gyroscope Repairer Name Role Phone Sreedhar Duran MD Primary Care Provider [phone] Encounter Details Date Type Department Care Team (Late st Contact Info) Description 05/18/2024 Telephone [facility] Card[facility] [address] [place] [address] Lupillo Waterman MD [address] [place] [id number] Social History Tobacco Use Types Packs/Day Years Used Date Smoking Tobacco: Never Smokeless Tobacco: Never Alcohol Use Standard Drinks/Week Comments Yes 1 (1 standard drink = 0.6 oz pur e alcohol) AUDIT-C Answer Date Recorded Q1: How often do you have a drink containing alc ohol? 2-3 times a week 08/10/2021 Q2: How many drinks containi ng alcohol do you have on a typical day when you are drinking? 1 or 2 08/10/2021 Q3: How often do you have si x or more drinks on one occasion? Never 08/10/2021 Comments Unknown Sex and Gender Information Value Date Recorded Sex Assigned at Not on file Legal Sex Female 11:04 AM [employer] Gender Identity Female 05/19/2021 11:30 AM [employer] Sexual Orientation Not on file documented as of this encounter Miscellaneous Notes * Telephone Encounter - Nia Rose, RN - 05/18/2024 10:33 AM [employer] Spoke with pt, informed her it would be fine to get a tattoo, advised her to make sure she keeps itclean and it doesn't get infected. [employer] * Telephone Encounter - Shira Ibanez - 05/18/2024 10:23 AM CST Pt wants to know if it is okay to get a small tattoo on her forearm tomorrow. It is just going to be 4 small hearts about 4 inches long and an inch wide. States it is a generational tattoo with her family. She is scheduled for a procedure on 05/29 so she wants to make sure this is safe to do prior to that. Contact: [employer] documented in this encounter Plan of Treatment Not on file documented as of this encounter Visit Diagnoses Not on filedocumented in this encounter Care Teams Gyroscope Repairer Relationship Specialty Start Date End Date Sreedhar Duran MD PCP - General 08/30/16 documented as of this encounter
--- OUTSIDE RECORDS SUMMARY | 2024-06-14 12:32 | XMS_ITS | Clinical Summary ---
Author Organization [facility] Address [address] [place] [address] Care Team Providers Care Sawmill Or Timber Yard Worker Name Role Phone Sreedhar Duran MD Primary Care Provider [phone] Allergies Active Allergy Reactions Criticality Noted Date Comments Iodinated Contrast Media Hives Medium 05/15/2024 Iodine Hives Medium 02/14/2020 Medications sertraline (ZOLOFT) 100 mg tabletIndications :depression Take 1.5 tablets (150 mg total) by mouth every morning 0 Active benazepriL (LOTENSIN) 20 mg tabletIndications :hypertension Take 1 tablet (20 mg total) by mouth nightly 0 Active vit C,E-Dp-ahzxn-lute in-zeaxan [id number] ow-zjcg-ec-mg capsuleIndication s:supplement Take 1 capsule by mouth nightly Active nebivoloL (BYSTOLIC) 5 mg tabletIndications :hypertension Take 1 tablet (5 mg total) by mouth nightly Active cholecalciferol, vitamin D3, (VITAMIN D3 ORAL)Indications: supplement Take 25 mcg by mouth nightly Active HYDROCHLOROTHIAZI DE ORALIndications:b lood pressure Take 12.5 mg by mouth every morning 1 Active vitamin B complex capsuleIndication s:Vitamin Deficiency Prevention Take 1 capsule by mouth every morning Active acetaminophen (TYLENOL) 500 mg tablet Take 1 tablet (500 mg total) by mouth every 6 (six) hours as needed for pain Active ezetimibe (ZETIA) 10 mg tablet Take 1 tablet (10 mg total) by mouth daily 2 Active ALPRAZolam (XANAX) 0.25 mg tablet Oral 3 Active amLODIPine (NORVASC) 5 mg tablet Take 1 tablet (5 mg total) by mouth daily 30 tablet 11 4 03/26/20 25 Active diphenhydrAMINE (BENADRYL) 50 mg capsuleIndication s:allergic reaction Take 1 capsule (50 mg total) by mouth once for 1 dose one hour prior to procedure 1 capsule 5 Active predniSONE (DELTASONE) 50 mg tabletIndications :Allergy history, radiographic dye Take 1 tablet (50 mg) by mouth 3 (three) times a day 13 hours, 7 hours and 1 hours prior to procedure 3 tablet 5 Active Active Problems Problem Noted Date Diagnosed Date Severe obesity 03/05/2024 Lesion of canthus of left eye 07/14/2021 Overview (07/14/2021): Added automatically from request for surgery [id number] Family history of abdominal aortic aneurysm 01/08 Dyspnea on exertion 01/30/2020 Essential hypertension 01/28/2020 Other chest pain 01/28/2020 Thrombocytopenia 12/22/2015 Hyperlipidemia Encounters Date Type Department Care Team Description 05/29/2024 10:00 AM DIGITAL MEDIA INTERN - 05/29/2024 11:30 AM DIGITAL MEDIA INTERN Surgery [facility] Cardiac Catheterization Lab [address] [place] [id number] Lupillo Waterman MD LEFT HEART CATHETERIZATION WITH CORONARY ANGIOGRAPHY AND WITH OR WITHOUT LEFT VENTRICULOGRAM [id number] 05/29/2024 7:35 AM DIGITAL MEDIA INTERN - 05/29/2024 12:37 PM DIGITAL MEDIA INTERN Hospital Encounter [facility] Cardiac Catheterization Lab [address] [place] [id number] Lupillo Waterman MD Dyspnea on exertion Discharge Disposition: Discharge to home or self care 05/18/2024 Telephone [facility] Cardiology [address] [place] [phone] Lupillo Waterman MD 04/30/2024 10:15 AM DIGITAL MEDIA INTERN Office Visit [facility] Cardiology [address] [place] [address] Lupillo Waterman MD Essential hypertension (Primary Dx); Family history of abdominal aortic aneurysm; Mixed hyperlipidemia; Other chest pain; Dyspnea on exertion 04/30/2024 Telephone [facility] Cardiology [address] [place] [address] Lupillo Waterman MD 03/26/2024 9:15 AM DIGITAL MEDIA INTERN Office Visit [facility] Cardiology [address] [place] [address] Lupillo Waterman MD Mixed hyperlipidemia (Primary Dx); Essential hypertension; Dyspnea on exertion; Other chest pain; Family history of abdominal aortic aneurysm from Last 3 Months Immunizations Name Administration Dates Next Due Pfizer SARS-CoV-2 Monovalent Vaccination (12+ Yrs) WELLS-READY TO USE 08/11/2021 Surgical History Surgery Date Site/Laterality Comments HYSTERECTOMY 05/09/1972 - 05/08/1973 INGUINAL HERNIA REPAIR 05/09/1966 - 05/08/1967 URETER SURGERY 05/09/1972 - 05/08/1973 Right EYE SURGERY CATARACT EXTRACTION 05/09/2009 - 05/08/2010 Bilateral BILATERAL OOPHORECTOMY 05/09/1990 - 05/08/1991 MOHS SURGERY 05/09/2018 - 05/08/2019 Left WRIST SURGERY RECONSTRUCTION 09/28/2021 Left Left medial canthal reconstruction OS CHOLECYSTECTOMY Medical History Medical History Date Comments Hypertension Hyperlipidemia Anxiety Cataract Sleep apnea Basal cell carcinoma Dyspnea on exertion Chest pressure GERD (gastroesophageal reflux disease) Borderline diabetes Low platelet count (HCC) Thrombocytopenia (HCC) Anemia, Amador's (HCC) HL (hearing loss) bilateral hear ing aides Family History Medical History Relation Name Comments Abdominal Aortic Aneurysm Brother Abdominal Aortic Aneurysm Father Stroke Mother Relation Name Status Comments Brother Father Mother Social History Tobacco Use Types Packs/Day Years Used Date Smoking Tobacco: Never Smokeless Tobacco: Never Tobacco Cessation:Counseling Given: Not Answered Alcohol Use Standard Drinks/Week Comments Yes 1 [...] more drinks on one occasion? Never 08/10/2021 Personal Safety Answer Date Recorded Have you ever been in or are you currently in a harmful physical or emotional relationship or is someone making you feel afraid or unsafe? Denies 05/29/2024 Comments Unknown Sex and Gender Information Value Date Recorded Sex Assigned at Not on file Legal Sex Female 11:04 AM DIGITAL MEDIA INTERN Gender Identity Female 05/19/2021 11:30 AM DIGITAL MEDIA INTERN Sexual Orientation Not on file Obstetrics History Last Filed Vital Signs Vital Sign Reading Time Taken Comments Blood Pressure 125/58 05/29/2024 12:20 PM DIGITAL MEDIA INTERN Pulse 62 05/29/2024 12:25 PM DIGITAL MEDIA INTERN Temperature 36.9 C (98.4 F) 05/29/2024 8:17 AM DIGITAL MEDIA INTERN Respiratory Rate 18 05/29/2024 12:20 PM DIGITAL MEDIA INTERN Oxygen Saturation 93% 05/29/2024 12:25 PM DIGITAL MEDIA INTERN Inhaled Oxygen Concentration - - Weight 78.7 kg (173 lb 8 oz) 05/29/2024 8:17 AM DIGITAL MEDIA INTERN Height 152.4 cm (5') 05/29/2024 8:17 AM DIGITAL MEDIA INTERN Body Mass Index 33.88 05/29/2024 8:17 AM DIGITAL MEDIA INTERN Plan of Treatment Health Maintenance Due Date Last Done Comments Depression Screening 1945 Osteoporosis Screening-Bone Density Scan 1945 DTaP/Tdap/Td Vaccine (1 - Tdap) 1954 Hepatitis B Screening 1961 Pneumococcal vaccine 65+ (1 of 1 - PCV) 02/29/2008 Well Visit 65+ 02/29/2008 Covid-19 Vaccine (5 - 2023-2 5 season) 2024 08/11/2021, 02/11/2021, 07/12/2020, Additional history exists Influenza Vaccine (#1) 2024 , 02/27/2020, 01/15/2019, Additional history exists Fall Risk Assessment 05/29/2025 05/29/2024 Zoster Vaccine Completed 12/20/2018, 10/10/2018 Medical Devices Implanted Type Area Policy Loan Calculator Device Identifier Shelf Expiration Date Model / Serial / Lot My Own Med Device Closure Vascade Od5 Fr Femoral Artery [id number] - [id number] Implanted:Qty: 1 on 05/29/2024 by Lupillo Waterman MD at [facility] [employer] 09/14/2025 [id number] / / [id number] Procedures Procedure Name Priority Date/Time Associated Diagnosis Comments POCT GLUCOSE DEVICE Routine 05/29/2024 1 0:48 AM DIGITAL MEDIA INTERN LEFT HEART CATHETERIZATION WITH CORONARY ANGIOGRAPHY AND WITH AND WITHOUT LEFT VENTRICULOGRAM Routine 05/29/2024 10:20 AM DIGITAL MEDIA INTERN Dyspnea on exertion MODERATE SEDATION FIRST 15MIN 5+ YEAR 17100 05/29/2024 9:29 AM DIGITAL MEDIA INTERN Dyspnea on exertion MODERATE SEDATION SAME MD MEIER ADDPraveen 15 MIN 07024 05/29/2024 9:29 AM DIGITAL MEDIA INTERN Dyspnea on exertion CBC WITHOUT DIFFERENTIAL Routine 05/29/2024 7:51 AM DIGITAL MEDIA INTERN POCT GLUCOSE DEVICE Routine 05/29/2024 7 :47 AM DIGITAL MEDIA INTERN EGFR Routine 05/29/2024 7:43 AM DIGITAL MEDIA INTERN COMPREHENSIVE METABOLIC PANEL Routine 05/29/2024 7:43 AM DIGITAL MEDIA INTERN from Last 3 Months Results * (ABNORMAL) POCT glucose (05/29/2024 10:48 AM DIGITAL MEDIA INTERN) Glucose, POC 284(H) 70 - 199 mg/dL Blood 05/29/2024 10:4 8 AM DIGITAL MEDIA INTERN 05/29/2024 10:48 AM DIGITAL MEDIA INTERN us Lupillo Waterman MD LAB POCT ORDERABLES - DEVICE Final Result [address] Department [place] [address] * LEFT HEART CATHETERIZATION WITH CORONARY ANGIOGRAPHY AND WITH AND WITHOUT LEFT VENTRICULOGRAM (05/29/2024 10:20 AM DIGITAL MEDIA INTERN) Anatomical Region Laterality Modality X-Ray Angiograph y Narrative 05/30/2024 8:38 PM DIGITAL MEDIA INTERN CARDIAC CATHETERIZATION REPORT Ratna Wilson IP ENCOUNTER: @CSN@ Date of Procedure: 05/29/2024 BIRTHDATE: 1945 CULLED FRUIT PACKER: Lupillo Waterman MD PREPROCEDURE DIAGNOSES: This is 79-year-old female with history of hypertension. She had recurrent episodes of chest pain underwent stress test in the past that was negative however she continues to have chest pains and therefore we decided to do the catheterization to rule out CAD. PROCEDURES PERFORMED: Moderate sedation that started at 9:47 a.m. and ended at 10:20 a.m. with total duration 33 minutes using 3mg of Versed and 75mcg of fentanyl. The registered nurse was samia boone Selective left and right coronary angiogram. Left heart catheterization with measurement of LVEDP and measure gradient across aortic valve. Right common femoral arterial angiogram. Deployment 6 Belizean Angio-Seal. FINDINGS: Left main without significant disease Left anterior descending artery is large with minimal irregularities proximally. Tortuous distally. Gives rise to medium diagonal branch that is tortuous without significant obstruction. Left circumflex artery is large without significant disease. Gives rise to OM1 and tortuous without significant obstruction. Right coronary artery was large and dominant without significant obstruction. LVEDP was 10 mm Hg no gradient across aortic valve. LV angiogram shows normal ejection fraction 65% with no wall motion abnormalities. Ascending aorta looks unremarkable. Right common femoral arterial angiogram shows no significant disease in the right common femoral artery. COMPLICATIONS: None ESTIMATED BLOOD LOSS: 5 mL PROCEDURAL DESCRIPTION: After informed consent patient was brought into the lab clerk where she was draped and prepped in the usual manner. Moderate sedation was given and the right groin infiltrated using 1% lidocaine. Five Belizean sheath was obtained using micropuncture needle and modified Seldinger technique. Selective left coronary angiogram was done using JL4 catheter with the tip of the catheter placed in the left main coronary artery. Selective right coronary angiogram was done using JR4 catheter with the tip of the catheter placed in the right coronary artery. After that 5 Belizean pigtail catheter was advanced across aortic valve into the left ventricular with measurement of LVEDP and measure gradient across aortic valve. LV angiogram was done as well. Right common femoral arterial angiogram was done and deployed five Bel[place]an Vascade closure device.. Access site: Right common femoral artery. Hemostasis: five [place]an Vascade closure device.. CONCLUSIONS No significant CAD. PLAN Continue risk factor modification for CAD Lupillo Waterman MD CV CARDIAC CATH PROC EDURES Final Result * (ABNORMAL) CBC without differential (05/29/2024 7:51 AM DIGITAL MEDIA INTERN) WBC 5.6 3.8 - 9.9 K/cumm Hgb 13.7 11.9 - 15.5 g/dL [facility] Hct 40.3 35.6 - 45.5 % [facility] Plt 79(L) 150 - 400 K/cumm [facility] MPV 9.7 9.1 - 12.3 fL [facility] RBC 4.44 3.90 - 5.20 M/cumm [facility] MCV 90.8 81.3 - 96.4 fL [facility] MCH 30.9 27.1 - 33.3 pg [facility] MCHC 34.0 32.3 - 35.7 g/dL [facility] RDW CV 12.8 11.1 - 14.9 % [facility] RDW SD 42.7 35.7 - 48.1 fL [facility] NRBC abs 0.00 0.00 - 0.01 K/cumm [facility] Blood 05/29/2024 7:51 AM DIGITAL MEDIA INTERN 05/29/2024 8:13 AM DIGITAL MEDIA INTERN Lupillo Waterman MD LAB BLOOD ORDERABLES Final Result [address] Department of [employer] [place] [address] * (ABNORMAL) POCT glucose (05/29/2024 7:47 AM DIGITAL MEDIA INTERN) Glucose, POC 336(H) 70 - 199 mg/dL Blood 05/29/2024 7:47 AM DIGITAL MEDIA INTERN 05/29/2024 7:47 AM DIGITAL MEDIA INTERN Lupillo Waterman MD LAB POCT ORDERABLES - DEVICE Final Result Performing Organization Address [facility] Co de Phone Number DEBBIE PALM [address] Department [place] [employer] [place] [address] * eGFR (05/29/2024 7:43 AM DIGITAL MEDIA INTERN) eGFR 83 >=60 mL/min/1. 73 m2 Comment: Interpretive Data Reference Interval Normal >/= 90 mL/min/1.73m2 Mildly decreased* 60 - 89 mL/min/1.73m2 Mildly to moderately decreased 45 - 59 mL/min/1.73m2 Moderately to severely decreased 30 - 44 mL/min/1.73m2 Severely decreased 15 - 29 mL/min/1.73m2 Kidney Failure < 15 mL/min/1.73m2 *Relative to young adult level Estimated glomerular filtration rate is determined by the 2020 CKD-EPI equation recommended by the National Kidney Foundation (A Unifying Approach to GFR Estimation: Recommendations of the NKF-ASK Task Force on Reassessing the Inclusion of Race in Diagnosing Kidney Disease, JASN 2020). The CKD-EPI equation should not be used for patients with unstable renal function and has not been validated in children and those over 70. Current interpretive data was last reviewed 2021. Blood 05/29/2024 7:43 AM DIGITAL MEDIA INTERN 05/29/2024 8:13 AM DIGITAL MEDIA INTERN Lupillo Waterman MD LAB BLOOD ORDERABLES Final Result Performing Organization Address [facility]/ZIP Co de Phone Number DEBBIE PALM [address] Department [place] [employer] [place] [address] * (ABNORMAL) Comprehensive metabolic panel (05/29/2024 7:43 AM DIGITAL MEDIA INTERN) Sodium 138 135 - 145 mmol/L Potassium, pl 4.5 3.3 - 4.9 mmol/L [facility] Chloride 100 97 - 110 mmol/L [facility] CO2 20(L) 22 - 32 mmol/L [facility] Anion gap 18(H) 2 - 15 mmol/L [facility] BUN 20 6 - 25 mg/dL [facility] Creatinine 0.73 0.60 - 1.10 mg/dL [facility] Glucose 337(H) 70 - 199 mg/dL [facility] Comment: Interpretive Data Fasting glucose >/= 126 mg/dl is diagnostic for diabetes. Fasting is defined as no caloric intake for at least 8 hours. Fasting glucose between 100 mg/dl to 125 mg/dl is diagnostic of prediabetes. In a patient with classic symptoms of hyperglycemia or hyperglycemic crisis, a random glucose >/= 200 mg/dl is diagnostic for diabetes. In the absence of unequivocal hyperglycemia, results should be confirmed by repeat testing. The classification and Diagnosis of Diabetes Diabetes Care 202; 46: S19-S40. Current interpretive data was last revised 2022. Calcium 9.7 8.5 - 10.3 mg/dL [facility] Bilirubin, total 0.5 0.1 - 1.2 mg/dL [facility] Protein, pl 7.1 6.5 - 8.5 g/dL [facility] Albumin 4.6 3.5 - 5.0 g/dL [facility] Alk phos 105 40 - 130 Units/L [facility] ALT 41 7 - 45 Units/L [facility] AST 33 10 - 45 Units/L [facility] Blood 05/29/2024 7:43 AM DIGITAL MEDIA INTERN 05/29/2024 8:13 AM DIGITAL MEDIA INTERN Lupillo Waterman MD LAB BLOOD ORDERABLES Final Result [facility] [address] [facility] [place] [address] from Last 3 Months Insurance [employer] MEDICARE GOLD [place] [address] [employer] MEDICARE GOLD Care Teams Sawmill Or Timber Yard Worker Relationship Specialty Start Date End Date Sreedhar Duran MD PCP - General 08/30/16
--- OUTSIDE RECORDS SUMMARY | 2024-06-14 12:32 | XMS_ITS | Encounter Summary ---
Author Organization [facility] Address [address] [place] [address] Phone Care Team Providers Care Physician Support Coordinator Name Role Phone Sreedhar Duran MD Primary Care Provider [phone] Xiao Whitman RN Unavailable [phone] Encounter Details Date Type Department Care Team (Late st Contact Info) Description 12/15/2018 Orders Only [facility] Scanning, Provider Social History Tobacco Use Types Packs/Day Years Used Date Smoking Tobacco: Never Comments Unknown Sex and Gender Information Value Date Recorded Sex Assigned at Not on file Legal Sex Female 11:04 AM CHILDCARE ATTENDANT Gender Identity Female 05/19/2021 11:30 AM CHILDCARE ATTENDANT Sexual Orientation Not on file documented as of this encounter Plan of Treatment Not on file documented as of this encounter Procedures Procedure Name Priority Date/Time Associated Diagnosis Comments SCAN - RADIOLOGY/IMAGING 12/15/2018 documented in this encounter Results * SCAN - RADIOLOGY/IMAGING (12/15/2018) Anatomical Region Laterality Modality Other us Provider Scanning Final Result documented in this encounter Visit Diagnoses Not on filedocumented in this encounter Care Teams Physician Support Coordinator Relationship Specialty Start Date End Date Sreedhar Duran MD PCP - General 08/30/16 Xiao Whitman, RN [address] [facility] [address] [place] [address] Community Placement Worker 02/02/19 documented as of this encounter
--- OUTSIDE RECORDS SUMMARY | 2024-06-14 12:32 | XMS_ITS | Referral Summary ---
Author Organization [facility] Address [address] [place] [address] Care Team Providers Care Industrial Security Analyst Name Role Phone Unavailable Primary Care Provider Unavailabl e Source Comments [facility],non-owned Affiliates and Associated Physician Practices is amultiple site organization consisting of ambulatory clinics and hospital sitesin [place], [place], [place] and [place]. This disclosure is being madepursuant to the Care Everywhere program and may not contain all information available regarding this patient. Last updated 18.[facility] [employer] Social History Tobacco Use Types Packs/Day Years Used Date Smoking Tobacco: Never Assessed Sex and Gender Information Value Date Recorded Sex Assigned at Not on file Gender Identity Not on file Sexual Orientation Not on file Plan of Treatment Not on file Darin Wilson Personal/Famil y Self 1945 [address] [place] [address]
--- OUTSIDE RECORDS SUMMARY | 2024-06-14 12:32 | XMS_ITS | Encounter Summary ---
Author Organization [facility] Address [address] [place] [address] Care Team Providers Care Customer Engagement Analyst Name Role Phone Unavailable Primary Care Provider Unavailabl e Encounter Details Date Type Department Care Team (Late st Contact Info) Description 11/04/2023 Lab Requisition [facility] - DermPath Lab [address] [place] [phone] Garret Ibarra MD [facility] DERMATOLOGY [address] [place] [phone] Neoplasm of uncertain behavior of skin Social History Tobacco Use Types Packs/Day Years Used Date Smoking Tobacco: Never Assessed Sex and Gender Information Value Date Recorded Sex Assigned at Not on file Gender Identity Not on file Sexual Orientation Not on file documented as of this encounter Plan of Treatment Not on file documented as of this encounter Procedures Procedure Name Priority Date/Time Associated Diagnosis Comments DERMATOPATHOLOGY Routine 11/04/2023 12:0 0 AM CDT Neoplasm of uncertain behavior of skin documented in this encounter Results * DERMATOPATHOLOGY (11/04/2023 12:00 AM CDT) Case Report Dermatopathology Report Case: [id number] Authorizing Provider: Garret Ibarra MD Collected: 11/04/2023 12:00 AM Ordering Location: [facility] - Received: 11/07/2023 01:36 PM DermPath Lab Pathologist: Brittny Morley MD Specimen: Skin, left medial breast 10-11:00 region 1:04 PM CDT DERMATOPATHOLOGY LABORATORY Final Diagnosis Specimen A. SKIN, left medial breast 10-11:00 region: BENIGN VERRUCOUS KERATOSIS, INFLAMED (L82.1) 1:04 PM CDT DERMATOPATHOLOGY LABORATORY Clinical History Neoplasm of uncertain behavior vs BCC 1:04 PM CDT DERMATOPATHOLOGY LABORATORY Gross Description Specimen A: Received is one formalin filled container labeled with the patient's name and designated left medial breast 10-11:00 region. The specimen consists of a shave biopsy measuring 5x4x1 mm. Jar 0. 1:04 PM CDT DERMATOPATHOLOGY LABORATORY Microscopic Description Specimen A. SKIN, left medial breast 10-11:00 region: Sections show hyperkeratosis, papillomatosis, hypergranulosis, and acanthosis. Inflammatory cells are present within the dermis. These histological findings can be seen in a verruca vulgaris or a seborrheic keratosis. 1:04 PM CDT DERMATOPATHOLOGY LABORATORY Disclaimer An external and internal positive and negative controls are appropriate for the histochemical, immunohistochemical and immunofluorescence stain(s) in this case (if any), except where stated explicitly. The performance characteristics of the stain(s) cited in this report were developed and its performance characteristic determined by the Dermatopathology Laboratory at [facility], directed by Dr. Chau De La O. These tests need not be, and therefore are not, approved by the [place] Food and Drug Administration. The tests are used for clinical purposes. Billing Codes Specimen Charges Stain Charges 65825 1 1:04 PM CDT DERMATOPATHOLOGY LABORATORY Embedded Images 1:04 PM CDT DERMATOPATHOLOGY LABORATORY Pathology/Cytolog y TISSUE SPECIMEN FROM SKIN / Unknown 11/04/2023 11/07/2023 1:36 PM CDT Garret Ibarra MD LAB - PATHOLOGY/CYTO LOGY ORDERABLES DERMATOPATHOLOGY LABORATORY [facility] - Department of Dermatology [address], [address] [phone] documented in this encounter Visit Diagnoses Diagnosis Neoplasm of uncertain behavior of skin documented in this encounter
--- OUTSIDE RECORDS SUMMARY | 2024-06-14 12:32 | XMS_ITS | Clinical Summary ---
Author Organization [facility] Address [address] [place] [address] Care Team Providers Care Cold Mill Inspector Name Role Phone Unavailable Primary Care Provider Unavailabl e Source Comments [facility],non-owned Affiliates and Associated Physician Practices is amultiple site organization consisting of ambulatory clinics and hospital sitesin [place], [place], [place] and [place]. This disclosure is being madepursuant to the Care Everywhere program and may not contain all information available regarding this patient. Last updated 18.[facility] [employer] Social History Tobacco Use Types Packs/Day Years Used Date Smoking Tobacco: Never Assessed Sex and Gender Information Value Date Recorded Sex Assigned at Not on file Gender Identity Not on file Sexual Orientation Not on file Plan of Treatment Health Maintenance Due Date Last Done Comments BONE DENSITY TESTING 1945 DTAP/TDAP/TD VACCINES (1 - Tdap) 1962 PNEUMOCOCCAL VACCINE 50+ (1 of 1 - PCV) 1993 ZOSTER VACCINE (1 of 2) 1993 Respiratory Syncytial Virus (RSV) Vaccine Pt: or over 60 yrs (1 - 1-dose 75+ series) 2018 COVID-19 VACCINE ( - 2023-2 5 season) 2024 INFLUENZA VACCINE (#1) 2024 DEPRESSION SCREENING 05/09/2024 MEDICARE AWV CALENDAR YEAR 2024 HEPATITIS B VACCINE Aged Out No longe r eligible based on patient's age to complete this topic HIB VACCINE Aged Out No longer eligi ble based on patient's age to complete this topic HPV VACCINE Aged Out No longer eligi ble based on patient's age to complete this topic MENINGOCOCCAL (Group B) VACCINE Aged Out No longer eligible based on patient's age to complete this topic MENINGOCOCCAL VACCINE Aged Out No talha sherry eligible based on patient's age to complete this topic
--- OUTSIDE RECORDS SUMMARY | 2024-06-14 12:32 | XMS_ITS | Referral Summary ---
Author Organization [facility] Address [address] [place] [address] Care Team Providers Care Laser Beam Trim Operator Name Role Phone Sreedhar Duran MD Primary Care Provider [phone] Encounters Date Type Department Care Team Description 05/29/2024 10:00 AM GEOSPATIAL DEVELOPER - 05/29/2024 11:30 AM GEOSPATIAL DEVELOPER Surgery [facility] Cardiac Catheterization Lab [address] [place] [phone] Lupillo Waterman MD LEFT HEART CATHETERIZATION WITH CORONARY ANGIOGRAPHY AND WITH OR WITHOUT LEFT VENTRICULOGRAM [id number] 05/29/2024 7:35 AM GEOSPATIAL DEVELOPER - 05/29/2024 12:37 PM GEOSPATIAL DEVELOPER Hospital Encounter [facility] Cardiac Catheterization Lab [address] [place] [phone] Lupillo Waterman MD Dyspnea on exertion Discharge Disposition: Discharge to home or self care 05/18/2024 Telephone [facility] Cardiology [address] [place] [phone] Lupillo Waterman MD 04/30/2024 Telephone [facility] Cardiology [address] [place] [phone] Lupillo Waterman MD 04/30/2024 10:15 AM GEOSPATIAL DEVELOPER Office Visit [facility] Cardiology [address] [place] [phone] Lupillo Waterman MD Essential hypertension (Primary Dx); Family history of abdominal aortic aneurysm; Mixed hyperlipidemia; Other chest pain; Dyspnea on exertion 03/26/2024 9:15 AM GEOSPATIAL DEVELOPER Office Visit [facility] Cardiology [address] [place] [phone] Lupillo Waterman MD Mixed hyperlipidemia (Primary Dx); Essential hypertension; Dyspnea on exertion; Other chest pain; Family history of abdominal aortic aneurysm from Last 3 Months Allergies Active Allergy Reactions Criticality Noted Date Comments Iodinated Contrast Media Hives Medium 05/15/2024 Iodine Hives Medium 02/14/2020 Medications sertraline (ZOLOFT) 100 mg tabletIndications :depression Take 1.5 tablets (150 mg total) by mouth every morning 0 Active benazepriL (LOTENSIN) 20 mg tabletIndications :hypertension Take 1 tablet (20 mg total) by mouth nightly 0 Active vit C,P-Iz-thium-lute in-zeaxan [id number] dn-wlcm-pg-mg capsuleIndication s:supplement Take 1 capsule by mouth [...] (07/14/2021): Added automatically from request for surgery [id number] Family history of abdominal aortic aneurysm 01/08 Dyspnea on exertion 01/30/2020 Essential hypertension 01/28/2020 Other chest pain 01/28/2020 Thrombocytopenia 12/22/2015 Hyperlipidemia Immunizations Name Administration Dates Next Due Pfizer SARS-CoV-2 Monovalent Vaccination (12+ Yrs) WELLS-READY TO USE 08/11/2021 Social History Tobacco Use Types Packs/Day Years [...] on file Legal Sex Female 11:04 AM GEOSPATIAL DEVELOPER Gender Identity Female 05/19/2021 11:30 AM GEOSPATIAL DEVELOPER Sexual Orientation Not on file Last Filed Vital Signs Vital Sign Reading Time Taken Comments Blood Pressure 125/58 05/29/2024 12:20 PM GEOSPATIAL DEVELOPER Pulse 62 05/29/2024 12:25 PM GEOSPATIAL DEVELOPER Temperature 36.9 C (98.4 F) 05/29/2024 8:17 AM GEOSPATIAL DEVELOPER Respiratory Rate 18 05/29/2024 12:20 PM GEOSPATIAL DEVELOPER Oxygen Saturation 93% 05/29/2024 12:25 PM GEOSPATIAL DEVELOPER Inhaled Oxygen Concentration - - Weight 78.7 kg (173 lb 8 oz) 05/29/2024 8:17 AM GEOSPATIAL DEVELOPER Height 152.4 cm (5') 05/29/2024 8:17 AM GEOSPATIAL DEVELOPER Body Mass Index 33.88 05/29/2024 8:17 AM GEOSPATIAL DEVELOPER Plan of Treatment Not on file Medical Devices Implanted Type Area Inpatient Nursing Aide Device Identifier Shelf Expiration Date Model / Serial / Lot [facility] Device Closure Vascade Od5 Fr Femoral Artery [id number] - [id number] Implanted:Qty: 1 on 05/29/2024 by Lupillo Waterman MD at [facility] [employer] [facility] 09/14/2025 [id number] / / [id number] Procedures Procedure Name Priority Date/Time Associated Diagnosis Comments POCT GLUCOSE DEVICE Routine 05/29/2024 1 0:48 AM GEOSPATIAL DEVELOPER LEFT HEART CATHETERIZATION WITH CORONARY ANGIOGRAPHY AND WITH AND WITHOUT LEFT VENTRICULOGRAM Routine 05/29/2024 10:20 AM GEOSPATIAL DEVELOPER Dyspnea on exertion MODERATE SEDATION FIRST 15MIN 5+ YEAR [id number] 05/29/2024 9:29 AM GEOSPATIAL DEVELOPER Dyspnea on exertion MODERATE SEDATION SAME MD MEIER ADDPraveen 15 MIN [id number] 05/29/2024 9:29 AM GEOSPATIAL DEVELOPER Dyspnea on exertion CBC WITHOUT DIFFERENTIAL Routine 05/29/2024 7:51 AM GEOSPATIAL DEVELOPER POCT GLUCOSE DEVICE Routine 05/29/2024 7 :47 AM GEOSPATIAL DEVELOPER EGFR Routine 05/29/2024 7:43 AM GEOSPATIAL DEVELOPER COMPREHENSIVE METABOLIC PANEL Routine 05/29/2024 7:43 AM GEOSPATIAL DEVELOPER from Last 3 Months Results * (ABNORMAL) POCT glucose (05/29/2024 10:48 AM GEOSPATIAL DEVELOPER) Glucose, POC 284(H) 70 - 199 mg/dL Blood 05/29/2024 10:4 8 AM GEOSPATIAL DEVELOPER 05/29/2024 10:48 AM GEOSPATIAL DEVELOPER us Lupillo Waterman MD LAB POCT ORDERABLES - DEVICE Final Result DEBBIE PALM [address] [place] [address] * LEFT HEART CATHETERIZATION WITH CORONARY ANGIOGRAPHY AND WITH AND WITHOUT LEFT VENTRICULOGRAM (05/29/2024 10:20 AM GEOSPATIAL DEVELOPER) Anatomical Region Laterality Modality X-Ray Angiograph y Narrative 05/30/2024 8:38 PM GEOSPATIAL DEVELOPER CARDIAC CATHETERIZATION REPORT Ratna Wilson IP ENCOUNTER: @CSN@ Date of Procedure: 05/29/2024 BIRTHDATE: 1945 MARINE CHRONOMETER ASSEMBLER: Lupillo Waterman MD PREPROCEDURE DIAGNOSES: This is [...] Right common femoral arterial angiogram. Deployment 6 Nepalese Angio-Seal. FINDINGS: Left main without significant disease [...] informed consent patient was brought into the director of cath lab where she was draped and prepped in the usual manner. Moderate sedation was given and the right groin infiltrated using 1% lidocaine. Five Nepalese sheath was obtained using micropuncture needle and modified Seldinger technique. Selective left coronary angiogram was done using JL4 catheter with the tip of the catheter placed in the left main coronary artery. Selective right coronary angiogram was done using JR4 catheter with the tip of the catheter placed in the right coronary artery. After that 5 Nepalese pigtail catheter was advanced across aortic valve into the left ventricular with measurement of LVEDP and measure gradient across aortic valve. LV angiogram was done as well. Right common femoral arterial angiogram was done and deployed five Nepalese Vascade closure device.. Access site: Right common femoral artery. Hemostasis: five Nepalese Vascade closure device.. CONCLUSIONS No significant CAD. PLAN Continue risk factor modification for CAD Lupillo Waterman MD CV CARDIAC CATH PROC EDURES Final Result * (ABNORMAL) CBC without differential (05/29/2024 7:51 AM GEOSPATIAL DEVELOPER) [facility] WBC 5.6 3.8 - 9.9 K/cumm Hgb 13.7 11.9 - 15.5 g/dL [facility] Hct 40.3 35.6 - 45.5 % [facility] Plt 79(L) 150 - 400 K/cumm [facility] MPV 9.7 9.1 - 12.3 fL [facility] RBC 4.44 3.90 - 5.20 M/cumm [facility] MCV 90.8 81.3 - 96.4 fL [facility] MCH 30.9 27.1 - 33.3 pg [facility] MCHC 34.0 32.3 - 35.7 g/dL [facility] RDW CV 12.8 11.1 - 14.9 % [facility] RDW SD 42.7 35.7 - 48.1 fL [facility] NRBC abs 0.00 0.00 - 0.01 K/cumm [facility] Blood 05/29/2024 7:51 AM GEOSPATIAL DEVELOPER 05/29/2024 8:13 AM GEOSPATIAL DEVELOPER us Truptieer Otham Coy Waterman MD LAB BLOOD ORDERABLES Final Result EDBBIE PALM [address] [facility] [place] [address] * (ABNORMAL) POCT glucose (05/29/2024 7:47 AM GEOSPATIAL DEVELOPER) Glucose, POC 336(H) 70 - 199 mg/dL Blood 05/29/2024 7:47 AM GEOSPATIAL DEVELOPER 05/29/2024 7:47 AM GEOSPATIAL DEVELOPER us Lupillo Waterman MD LAB POCT ORDERABLES - DEVICE Final Result Performing Organization Address [facility] Co de Phone Number DEBBIE PALM [address] [facility] [place] [address] * eGFR (05/29/2024 7:43 AM GEOSPATIAL DEVELOPER) eGFR 83 >=60 mL/min/1. 73 m2 Comment: [...] last reviewed 2021. Blood 05/29/2024 7:43 AM GEOSPATIAL DEVELOPER 05/29/2024 8:13 AM GEOSPATIAL DEVELOPER us Lupillo Waterman MD LAB BLOOD ORDERABLES Final Result Performing Organization Address City/[facility]/ZIP Co de Phone Number DEBBIE PALM [address] [place] [address] * (ABNORMAL) Comprehensive metabolic panel (05/29/2024 7:43 AM GEOSPATIAL DEVELOPER) Sodium 138 135 - 145 mmol/L Potassium, pl 4.5 3.3 - 4.9 mmol/L [facility] Chloride 100 97 - 110 mmol/L CERNER [...] Units/L [facility] Blood 05/29/2024 7:43 AM GEOSPATIAL DEVELOPER 05/29/2024 8:13 AM GEOSPATIAL DEVELOPER Lupillo Waterman MD LAB BLOOD ORDERABLES Final Result Performing Organization Address City/[facility]/ZIP Co de Phone Number DEBBIE PALM [address] [place] [address] from Last 3 Months Insurance A[employer] MEDICARE GOLD AETNA MEDICARE GOLD AETNA MEDICARE GOLD Care Teams Laser Beam Trim Operator Relationship Specialty Start Date End Date Sreedhar Duran MD PCP - General 08/30/16
--- OUTSIDE RECORDS SUMMARY | 2024-06-14 12:32 | XMS_ITS | Patient Health Summary ---
Author Organization [facility] Address [address] [place] [address] Care Team Providers Care Laborer Airport Maintenance Name Role Phone Unavailable Primary Care Provider Unavailabl e Note from [facility],non-owned Affiliates and Associated Physician Practices is amultiple site organization consisting of ambulatory clinics and hospital sitesin [place], [place], [place] and [place]. This disclosure is being madepursuant to the Care Everywhere program and may not contain all information available regarding this patient. Last updated 18.[facility] Social History Tobacco Use Types Packs/Day Years Used Date Smoking Tobacco: Never Assessed Sex and Gender Information Value Date Recorded Sex Assigned at Not on file Gender Identity Not on file Sexual Orientation Not on file Procedures * DERMATOPATHOLOGY(Performed 11/04/2023) Performed for Neoplasm of uncertain behavior of skin * DERMATOPATHOLOGY(Performed 05/04/2022) Performed for Neoplasm of uncertain behavior of skin Results * DERMATOPATHOLOGY (11/04/2023 12:00 AM CDT) Only the most recent of2 resultswithin the time period is included. Case Report Dermatopathology Report Case: [id number] Authorizing Provider: Garret Ibarra MD Collected: 11/04/2023 12:00 AM Ordering Location: [facility] - Received: 11/07/2023 01:36 PM DermPath Lab Pathologist: Brittny Morley MD Specimen: Skin, left medial breast 10-11:00 region 4 1:04 PM CDT DERMATOPATHOLOGY LABORATORY Final Diagnosis Specimen A. SKIN, left medial breast 10-11:00 region: BENIGN VERRUCOUS KERATOSIS, INFLAMED (L82.1) 4 1:04 PM CDT DERMATOPATHOLOGY LABORATORY Clinical History [...] characteristic determined by the Dermatopathology Laboratory at [facility], directed by Dr. Chau De La O. These tests need not be, and therefore are not, approved by the [place] Food and Drug Administration. The tests are used for clinical purposes. Billing Codes Specimen Charges Stain Charges 35887 1 4 1:04 PM CDT DERMATOPATHOLOGY LABORATORY Embedded Images 1:04 PM CDT DERMATOPATHOLOGY LABORATORY Pathology/Cytolog y TISSUE SPECIMEN FROM SKIN / Unknown 11/04/2023 11/07/2023 1:36 PM CDT Garret Ibarra MD LAB - PATHOLOGY/CYTO LOGY ORDERABLES DERMATOPATHOLOGY LABORATORY [facility] - Department of Dermatology [address], [address] [phone]
--- NOTE | 2024-06-14 16:39 | WPDPFTINT ---
PFT Procedure Performed PFT Procedure Performed Spirometry with Pre/Post Bronchodilator Plethysmography (Lung Vol) Diffusing Cap (DLCO) Flow Vol Loop PFT Interpretation This is a pulmonary function test with pre and post-bronchodilator spirometry, plethysmography and diffusing capacity. The test was performed and results interpreted in accordance with the 2019 and 2005 ATS/ERS Task Force guidelines respectively using the Global Lung Function Initiative-2012 reference equations. Patient demonstrated good effort and cooperation. Reproducibility criteria were met. The quality of the pre bronchodilator spirometry maneuver was Grade A and post bronchodilator spirometry maneuver was Grade A. Findings: Spirometry: The contour of the inspiratory and expiratory flow tracing is normal. The pre bronchodilator FVC is 2.52 L, 96% predicted. The pre bronchodilator FEV1 is 2.00 L, 99% predicted. The pre bronchodilator FEV1: FVC ratio 79%. The post bronchodilator FVC is 2.60 L, representing a 3% increase. The post bronchodilator FEV1 is 2.15 L, representing an 8% increase. The post bronchodilator FEV1: FVC ratio is 83%. Plethysmography: The total lung capacity is 4.40 L, 88% predicted. The functional residual capacity is 2.24 L, 86% predicted. The residual volume is 1.71 L, 81% predicted. Diffusing capacity: The diffusing capacity unadjusted for hemoglobin and carboxyhemoglobin is 15.7, 81% predicted. The diffusing capacity adjusted for alveolar volume is 4.02, 97% predicted. Impression: The spirometry is normal without evidence of an obstructive abnormality. There is no significant improvement after inhaling a single dose of albuterol. The lung volumes are normal. The diffusing capacity is normal. There are no prior studies for comparison
== END 2024-06-14 12:30 | disposition home or self-care (01) ==
PROVIDERS: PCP Family Medicine; Visit Provider Physician Assistant Medical
DX: R06.02 Shortness of breath (principal)
CPT/HCPCS: 94060; 94726; 94729

== ENCOUNTER 2024-11-16 09:17 | Outpatient (CLI) | payer MEDICARE, SELFPAY ==
--- NOTE | ~2024-11-16 | DEXA_ITS ---
Bone Density Report Name: DARIN SUMMERS Age: 79 Sex: Female Ethnicity: White Date of : 1945 Indication: postmenopausal; screening for osteoporosis; parental hip fracture; height loss; inflammatory bowel disease; cancer; hysterectomy; Referring Provider: LARRY HAMEED Study: Bone densitometry was performed. Exam Date: November 16, 2024 Accession number: [id number] Bone Density: Region BMD T-score Z-score Classification AP Spine(L1-L4) 1.038 -0.1 2.7 Normal Femoral Neck (Left) 0.635 -1.9 0.4 Osteopenia Total Hip (Left) 0.945 0.0 2.2 Normal Femoral Neck (Right) 0.615 -2.1 0.3 Osteopenia Total Hip (Right) 0.943 0.0 2.2 Normal Total Hip Mean 0.944 0.0 2.2 Normal World Health Organization criteria for BMD impression classify patients as: Normal (T-score at or above -1.0), Osteopenia (T-score between -1.0 and -2.5), or Osteoporosis (T-score at or below -2.5). 10-year Fracture Risk(1): Major Osteoporotic Fracture 27% Hip Fracture 18% Reported Risk Factors: [place] (), Neck BMD=0.615, BMI=34.5, parental fracture (1) FRAX(R) Version 3.08. Fracture probability calculated for an untreated patient. Fracture probability may be lower if the patient has received treatment. Previous Exams: -- Region Exam Age BMD T-score BMD Change BMD Change Date g/cm2 vs Baseline vs Previous -- AP Spine (L1-L4) 11/16/2024 79 1.038 -0.1 4.7%* 4.7%* 03/06/2021 76 0.991 -0.5 Total Hip(Left) 11/16/2024 79 0.945 0.0 -1.6% -1.6% 03/06/2021 76 0.961 0.2 Total Hip(Right) 11/16/2024 79 0.943 0.0 0.9% 0.9% 03/06/2021 76 0.934 -0.1 -- *Denotes significance at 95% confidence level, LSC for AP Spine = 0.022 g/cm2, LSC for Total Hip = 0.027 g/cm2 Clinical Information Provided by Patient: Parent has had a hip fracture Has used the following medications: Vitamin D Has the following medical conditions: Cancer, Inflammatory bowel diseases, Hysterectomy, BASAL CELL Patient maximum height was 60 Menopause Age: 27 Drinks caffeinated beverages Onset of menses at age 9 Number of children 4 Impression: The patient has low bone mass, based on the Right Femoral Neck T-score. The patient has an estimated ten-year risk of hip fracture of 18% and an estimated ten-year risk of major fracture of 27%, based on the WHO FRAX algorithm. The patient has risk factors, including: parental hip fracture. No significant bone loss was observed. Discussion: BONE DENSITY IS LOW AT ONE OR MORE SKELETAL SITES. THE PATIENT'S BMD AND CLINICAL RISK FACTORS CONTRIBUTE TO THIS PATIENT'S HIGH RISK OF FRACTURE. This patient's lowest T-score is low at one or more skeletal sites. It meets the World Health Organization's (WHO) criteria for ?low bone mass? (T-score between -1.0 and -2.5). The patient's 10-year risk of hip fracture and 10 year risk of a major osteoporotic fracture as calculated by FRAX exceeds the threshold where pharmacological therapy is recommended by the National Osteoporosis Foundation (NOF). However, all treatment decisions require clinical judgment and consideration of individual patient factors, including patient preferences, comorbidities, previous drug use, risk factors not captured in the FRAX model (e.g., frailty, falls, vitamin D deficiency, increased bone turnover, interval significant decline in bone density) and possible under or overestimation of fracture risk by FRAX. The patient should follow a healthful lifestyle (good nutrition with adequate calcium and vitamin D, and appropriate weight-bearing exercise). Follow-Up: Consider a repeat BMD and Vertebral Fracture Assessment (VFA) exam in 2 years or sooner if medically necessary, to reassess this patient's status. Reported by: AWA on 11/16/2024 10:00:00 AM. Reviewed, dictated and finalized at location A.
== END 2024-11-16 09:18 | disposition home or self-care (01) ==
LOC: MICIMG 09:17
PROVIDERS: PCP Family Medicine; Visit Provider Physician Assistant Medical
DX: M85.852 Other specified disorders of bone density and structure, left thigh (principal); M85.851 Other specified disorders of bone density and structure, right thigh; Z78.0 Asymptomatic menopausal state
CPT/HCPCS: 77080

== ENCOUNTER 2025-02-18 08:51 | Outpatient (CLI) | payer MEDICARE, SELFPAY ==
--- NOTE | ~2025-02-18 | US_ITS ---
Examination: Ultrasound of the retroperitoneum including kidneys and bladder. Clinical History: R10.A1 - Flank pain, right side . Comparison: CT abdomen pelvis 07/14/2023. Findings: Right kidney: 10 cm. Normal echogenicity. No collecting system dilatation. No shadowing calculi. 5 cm simple cyst. Additional smaller cysts on CT not seen. Left kidney: 11 cm. Normal echogenicity. No collecting system dilatation. No shadowing calculi. 1 cm small simple cyst. Additional small cysts on CT not seen. Urinary bladder: No wall thickening or focal abnormality. But only single image submitted. IMPRESSION: 1. No renal stones or hydronephrosis. Reviewed, dictated and finalized at location R.
== END 2025-02-18 08:52 | disposition home or self-care (01) ==
LOC: MICIMG 08:51
PROVIDERS: PCP Family Medicine; Visit Provider Physician Assistant Medical
DX: N28.1 Cyst of kidney, acquired (principal); R10.A1 Flank pain, right side; G89.29 Other chronic pain
CPT/HCPCS: 76770